=== PATIENT | female | born 1945 | race Two or more races ===

== ENCOUNTER 2019-02-27 20:29 | Inpatient (IN) | payer MEDICAID ==
[~2019-02-27] VITALS: Ht 152.4 cm; Wt 55.8 kg
[2019-02-27 20:45] VITALS: BP 105/60
--- NOTE | 2019-02-27 20:45 | NUR ---
ED Nurse Note: Patient was brought by RA from [facility] due to abnormal labs. AAO x4, Patient's BP is 80/45, other VSS at this time. skin is dry intact warm to touch.
--- NOTE | 2019-02-27 20:50 | Emergency Room Report ---
History of Present Illness General Chief Complaint: Abnormal Labs Source: Patient, Medical Record Present Illness HPI 74-year-old female, coming from senior care, presenting with low H&H. Reportedly her hemoglobin was 6. Patient is also clinical abdominal pain. She does say that she has a history of colon cancer but denies any surgical intervention for this. She says that she has had abdominal pain for quite some time. Denies any black stool. She had a normal bowel movement today that was brown in color. No nausea no vomiting. She is still been able to eat and drink. No fever no chills. No chest pain or shortness of breath Allergies: Coded Allergies: No Known Allergies (Unverified , 02/27/19) Patient History Past Medical History: see triage record Past Surgical History: none Pertinent Family History: none Last Menstrual Period: n/a Reviewed Nursing Documentation: PMH: Agreed; PSxH: Agreed Nursing Documentation-PMH Hx Hypertension: Yes Hx Diabetes: Yes Review of Systems All Other Systems: negative except mentioned in HPI Physical Exam Vital Signs Date Time Temp Pulse Resp B/P (MAP) Pulse Ox O2 Delivery O2 Flow Rate FiO2 02/27/19 20:26 97.9 102 19 100 Room Air Sp02 EP Interpretation: reviewed, normal General Appearance: alert, GCS 15, non-toxic, mild distress Head: normocephalic, atraumatic Eyes: bilateral eye normal inspection, bilateral eye PERRL, bilateral eye EOMI ENT: normal ENT inspection, normal pharynx, normal voice, moist mucus membranes Neck: normal inspection, full range of motion, supple Respiratory: normal inspection, lungs clear, normal breath sounds, no respiratory distress, no retraction, no wheezing, speaking full sentences, chest symmetrical Cardiovascular #1: normal inspection, regular rate, rhythm, no edema, normal capillary refill Cardiovascular #2: 2+ radial (R), 2+ radial (L) Gastrointestinal: other - Generalized abdominal tenderness, no guarding or rebound normal bowel sounds auscultated Musculoskeletal: normal inspection, back normal, normal range of motion, non- tender Neurologic: normal inspection, alert, oriented x3, responsive, motor strength/ tone normal, sensory intact, normal gait, speech normal Psychiatric: normal inspection, judgement/insight normal, memory normal Skin: normal inspection, normal color, no rash, warm/dry, well hydrated, normal turgor Procedures Critical Care Time Critical Care Time Critical care time of 40 minutes, was performed in order to assess and manage the high probability of imminent or life threatening deterioration , with frequent reassessment and excludes all billable procedures. Medical Decision Making Diagnostic Impression: Primary Impression: Anemia Additional Impression: Abdominal pain ER Course 74-year-old female with abdominal pain low H&H hgb 6.8 Differential Diagnosis: GI bleed, Gastritis, gastroenteritis, cholecystitis, appendicitis, diverticulitis, SBO, cardiac, UTI/pyelo Plan: Basic labs, ua, ekg Pepcid, maalox, pain control, IVF CT abdopelvis ER course: Patient given 1 L fluids for hypotension rectal exam: NO stool in vault. no blood Disposition: Patient signed out to Dr Alvarado Pt is still pending CT scan, likely will require admission Please note that this Emergency Department Report was dictated using [employer] analyst technology software, occasionally this can lead to erroneous entry secondary to interpretation by the dictation equipment. EKG Diagnostic Results EP Interpretation: Yes Rate: normal Rhythm: NSR ST Segments: No acute changes ASA given to patient: No Rhythm Strip EP Interpretation: Yes Rate: 92 Rhythm: NSR, no PVCs, no ectopy Chest X-ray CXR: Ordered: Yes 1 view Indication: Pain EP interpretation: Yes Interpretation: slight cardiomegaly otherwise no acute dx Impression: No acute disease Electronically signed by Sam Ulrich MD Laboratory Tests Test 02/27/19 20:50 02/27/19 20:55 02/27/19 21:15 Urine Color Pale yellow Urine Appearance Clear Urine pH 7 (4.5-8.0) Urine Specific [place] 1.005 (1.005-1.035) Urine Protein Negative (NEGATIVE) Urine Glucose (UA) Negative (NEGATIVE) Urine Ketones Negative (NEGATIVE) Urine Blood Negative (NEGATIVE) Urine Nitrite Negative (NEGATIVE) Urine Bilirubin Negative (NEGATIVE) Urine Urobilinogen Normal MG/DL (0.0-1.0) Urine Leukocyte Esterase 1+ (NEGATIVE) H Urine RBC 0-2 /HPF (0 - 2) Urine WBC 2-4 /HPF (0 - 2) Urine Squamous Epithelial Cells Few /LPF (NONE/OCC) Urine Bacteria Few /HPF (NONE) White Blood Count 2.5 K/UL (4.8-10.8) L Red Blood Count 2.61 M/UL (4.20-5.40) L Hemoglobin 7.6 G/DL (12.0-16.0) L Hematocrit 22.2 % (37.0-47.0) L Mean Corpuscular Volume 85 FL (80-99) Mean Corpuscular Hemoglobin 29.3 PG (27.0-31.0) Mean Corpuscular Hemoglobin Concent 34.5 G/DL (32.0-36.0) Red Cell Distribution Width 16.4 % (11.6-14.8) H Platelet Count 102 K/UL (150-450) L Mean Platelet Volume 11.5 FL (6.5-10.1) H Neutrophils (%) (Auto) % (45.0-75.0) Lymphocytes (%) (Auto) % (20.0-45.0) Monocytes (%) (Auto) % (1.0-10.0) Eosinophils (%) (Auto) % (0.0-3.0) Basophils (%) (Auto) % (0.0-2.0) Differential Total Cells Counted 100 Neutrophils % (Manual) 23 % (45-75) L Lymphocytes % (Manual) 71 % (20-45) H Monocytes % (Manual) 3 % (1-10) Eosinophils % (Manual) 2 % (0-3) Basophils % (Manual) 1 % (0-2) Band Neutrophils 0 % (0-8) Platelet Estimate Decreased L Platelet Morphology Normal Hypochromasia 1+ Anisocytosis 1+ Prothrombin Time 10.3 SEC (9.30-11.50) Prothrombin Time INR 1.0 (0.9-1.1) PTT 24 SEC (23-33) Sodium Level 136 MMOL/L (136-145) Potassium Level 4.1 MMOL/L (3.5-5.1) Chloride Level 100 MMOL/L (98-107) Carbon Dioxide Level 23 MMOL/L (21-32) Anion Gap 13 mmol/L (5-15) Blood Urea Nitrogen 21 mg/dL (7-18) H Creatinine 1.0 MG/DL (0.55-1.30) Estimate Glomerular Filtration Rate mL/min (>60) Glucose Level 217 MG/DL (74-106) H Calcium Level 9.5 MG/DL (8.5-10.1) Total Bilirubin 0.2 MG/DL (0.2-1.0) Aspartate Amino Transferase (AST) 11 U/L (15-37) L Alanine Aminotransferase (ALT) 19 U/L (12-78) Alkaline Phosphatase 135 U/L (46-116) H Troponin I 0.023 ng/mL (0.000-0.056) Total Protein 7.8 G/DL (6.4-8.2) Albumin 3.9 G/DL (3.4-5.0) Globulin 3.9 g/dL Albumin/Globulin Ratio 1.0 (1.0-2.7) Lipase 280 U/L (73-393) Lactic Acid Level 4.20 mmol/L (0.4-2.0) H Last Vital Signs Date Time Temp Pulse Resp B/P (MAP) Pulse Ox O2 Delivery O2 Flow Rate FiO2 02/27/19 20:26 97.9 102 19 100 Room Air Disposition: ADMITTED INPATIENT Condition: Serious DesireeoSam M.D. February 27, 2019 20:50
[2019-02-27] MEDS ORDERED: Isovue-300 100ml vial INJ PRN (21:00)
[2019-02-27 21:12] LABS: APPEARANCE,URINE CLEAR; BILIRUBIN, URINE NEGATIVE (NEGATIVE); COLOR,URINE PALE YELLOW; GLUCOSE, URINE (UA) NEGATIVE (NEGATIVE); KETONES,URINE NEGATIVE (NEGATIVE); LEUKOCYTE ESTERASE ,URINE 1+ (NEGATIVE); NITRITE,URINE NEGATIVE (NEGATIVE); PH,URINE 7 (4.5-8.0); PROTEIN,URINE NEGATIVE (NEGATIVE); UROBILINOGEN,URINE NORMAL MG/DL (0.0-1.0)
[2019-02-27 21:12] LABS: HEMATOCRIT 22.2 % (37.0-47.0); HEMOGLOBIN 7.6 G/DL (12.0-16.0); MEAN CORPUSCULAR VOLUME 85 FL (80-99); PLATELET COUNT 102 K/UL (150-450); RED BLOOD COUNT 2.61 M/UL (4.20-5.40); RED CELL DISTRIBUTION WIDTH 16.4 % (11.6-14.8); WHITE BLOOD COUNT 2.5 K/UL (4.8-10.8)
[2019-02-27 21:29] LABS: ANION GAP 13 mmol/L (5-15); BLOOD UREA NITROGEN 21 mg/dL (7-18); CALCIUM 9.5 MG/DL (8.5-10.1); CARBON DIOXIDE 23 MMOL/L (21-32); CHLORIDE 100 MMOL/L (98-107); POTASSIUM 4.1 MMOL/L (3.5-5.1); SODIUM 136 MMOL/L (136-145)
[2019-02-27 21:33] LABS: ALANINE AMINOTRANSFERASE 19 U/L (12-78); ALBUMIN 3.9 G/DL (3.4-5.0); ALKALINE PHOSPHATASE 135 U/L (46-116); ASPARTATE AMINO TRANSFERASE 11 U/L (15-37); BILIRUBIN,TOTAL 0.2 MG/DL (0.2-1.0)
[2019-02-27] MEDS ORDERED: OMEPRAZOLE20 M3 ORAL (22:10)
[2019-02-27] MEDS ORDERED: GLIMEPIRIDE4 MG ORAL (22:10)
[2019-02-27] MEDS ORDERED: LANTUS SOL100 UNIT/1 SUBQ (22:10)
[2019-02-27] MEDS ORDERED: SPIRONOLACTONE100 MG ORAL (22:10)
[2019-02-27] MEDS ORDERED: LISINOPRIL5 MG ORAL (22:10)
[2019-02-27] MEDS ORDERED: REVLIMID5 MG PO (22:10)
[2019-02-27] MEDS ORDERED: MELATONIN3 MG ORAL (22:10)
[2019-02-27] MEDS ORDERED: FUROSEMIDE40 MG ORAL (22:10)
[2019-02-27] MEDS ORDERED: ACTOS45 MG ORAL (22:10)
[2019-02-27] MEDS ORDERED: METOPROLOL TART25 MG ORAL (22:10)
[2019-02-27] MEDS ORDERED: METFORMIN HCL1000 M1 ORAL (22:10)
[2019-02-27] MEDS ORDERED: SIMVASTATIN20 MG ORAL (22:10)
[2019-02-27] MEDS ORDERED: ACETAMINOPHEN325 M1 ORAL (22:10)
[2019-02-27] MEDS ORDERED: Ciprofloxacin 500mg tab ORAL ONE (22:45)
--- NOTE | 2019-02-27 22:54 | NUR ---
ED Nurse Note: Patient refused take Ciprofloaxacin. States that she can not dring liquids.
--- NOTE | 2019-02-27 23:35 | NUR ---
ED Nurse Note: Blood transfusion start at 2335, VSS at this time, no acute disstress or transfusion reaction noticed.
--- NOTE | 2019-02-27 23:40 | NUR ---
ED Nurse Note: Per ER MD Gregg 3.375 was canceled.
--- NOTE | 2019-02-27 23:50 | NUR ---
ED Nurse Note: 15 min pass since blod transfusion started, VSS at this time, no blood transfusion reaction noticed.
[2019-02-28] VITALS: BP 122/70
[2019-02-28] MEDS ORDERED: Hydromorphone 0.5mg/0.5ml inj IVP PRN (00:15)
[2019-02-28] MEDS ORDERED: Piperacillin/Tazobactam 3.375 GM in NS 110 ML IVPB SCH ×2 (00:30→06:00)
--- NOTE | 2019-02-28 00:50 | NUR ---
ED Nurse Note: Patient was admited to Tele due to abnormal labs AAO x4, VSS at this time,. skin is dry, warm to touch. Patient was transfered by ACLS protocol, all belongings were given to the patient.
--- NOTE | 2019-02-28 01:00 | NUR ---
NURSE NOTES: Received report from Nataly. EMA. regarding patients transfer to TELE floor from ED. belongings checked and accounted for. head to toe assessment done with no noted skin issues. No complaint of acute pain at this time. No reaction observed with blood transfusion. Safety precaution in place; siderails X2 up, call light within reach, bed in lowest position, brakes and alarm on at all times. Needs and wants anticipated and attended. Will continue plan of care and monitor for any changes noted. Addendum: 02/28/19 at 0752 by KIEL VASQUEZ RN Charted with wrong Nurse access
--- NOTE | 2019-02-28 01:00 | NUR ---
NURSE NOTES: Received report from Nataly. RN. regarding patients transfer to TELE floor from ED. belongings checked and accounted for. head to toe assessment done with no noted skin issues. No complaint of acute pain at this time. No reaction observed with blood transfusion. Safety precaution in place; siderails X2 up, call light within reach, bed in lowest position, brakes and alarm on at all times. Needs and wants anticipated and attended. Will continue plan of care and monitor for any changes noted.
--- NOTE | 2019-02-28 01:00 | NUR ---
NURSE NOTES: Spoke with David Villaseñor MD. regarding admit orders. New orders received and carried out. Will continue 2/2 bag of PRBCs per MD. Will continue plan of care.
[2019-02-28] MEDS ORDERED: D5 1/2NS w/KCl 20mEq 1,000 ML IV SCH (01:04)
[2019-02-28] MEDS: Piperacillin/Tazobactam 3.375 GM in NS 110 ML IVPB SCH ×3 (03:35→21:21)
[2019-02-28 04:00] VITALS: BP 132/82
[2019-02-28] MEDS ORDERED: Vancomycin 1gm in D5W 275ml IVPB SCH (06:00)
[2019-02-28] MEDS: NovoLOG Insulin Flexpen SUBQ SCH ×4 (06:30→21:00)
--- NOTE | 2019-02-28 07:55 | NUR ---
HAND-OFF: Report given to Maverick Adamson RN. PAtient in stable condition. Will continue plan of care.
[2019-02-28 08:00] VITALS: BP 130/82
[2019-02-28] MEDS: Heparin 5000 units/ml inj SUBQ SCH ×2 (09:00→21:00)
[2019-02-28 09:13] LABS: HEMATOCRIT 32.3 % (37.0-47.0); HEMOGLOBIN 10.9 G/DL (12.0-16.0); MEAN CORPUSCULAR VOLUME 87 FL (80-99); PLATELET COUNT 81 K/UL (150-450); RED CELL DISTRIBUTION WIDTH 15.2 % (11.6-14.8)
[2019-02-28 09:39] LABS: ALANINE AMINOTRANSFERASE 21 U/L (12-78); ALBUMIN 3.3 G/DL (3.4-5.0); ALBUMIN/GLOBULIN RATIO 0.9 (1.0-2.7); ALKALINE PHOSPHATASE 117 U/L (46-116); ANION GAP 12 mmol/L (5-15); ASPARTATE AMINO TRANSFERASE 15 U/L (15-37); BILIRUBIN,TOTAL 0.6 MG/DL (0.2-1.0); BLOOD UREA NITROGEN 15 mg/dL (7-18); CALCIUM 9.1 MG/DL (8.5-10.1); CARBON DIOXIDE 23 MMOL/L (21-32); CHLORIDE 107 MMOL/L (98-107); CREATININE 0.8 MG/DL (0.55-1.30); POTASSIUM 4.6 MMOL/L (3.5-5.1); SODIUM 142 MMOL/L (136-145)
[2019-02-28 10:02] LABS: WHITE BLOOD COUNT 1.8 K/UL (4.8-10.8)
--- NOTE | 2019-02-28 10:51 | NUR ---
*-* INSURANCE *-* ALL CLINICALS HAVE BEEN FAXED TO: IPA: JOSEP HARRIS P: [phone] F: [phone] Addendum: 02/28/19 at 1542 by ANDERSON VILLALOBOS CM KATHLEEN# [id number]
[2019-02-28 12:00] VITALS: BP 138/88
[2019-02-28] MEDS: Vancomycin 1gm in D5W 275ml IVPB SCH (12:13)
--- NOTE | 2019-02-28 13:53 | Diagnostic Imaging Report ---
Indication: Abdominal pain Technique: Continuous helical transaxial imaging of the abdomen and pelvis was obtained from the lung bases to the pubic symphysis during intravenous contrast administration. Coronal 2-D reformats were also obtained. Study obtained in a Siemens sensation [address] Automatic Exposure Control was utilized. Total Dose length Product (DLP): 546.[address] Dose Index Volume (CTDIvol): 11.15 mGy Comparison: None Findings: There is calcification of the mitral valve. Small hiatal hernia noted. The lung bases are clear. There is pneumobilia present. The biliary ducts do not appear dilated. Aorta is moderately calcified. The gallbladder is absent. The spleen is normal in size. Attenuation of the liver is normal and uniform. There is an umbilical hernia containing fat. Few diverticula noted in the sigmoid colon. Uterus is unremarkable. The bladder is unremarkable. There is a left inguinal hernia containing fat. Subcutaneous reticular densities demonstrated in the sacral decubitus region. No obvious soft tissue air identified. There is no abscess identified. Correlate clinically for sacral decubitus ulcers. There is narrowing of intervertebral discs and accompanying endplate osteophyte formation. Hypertrophied facet joints also demonstrated.. Small hypodensities noted in the kidneys too small to characterize. There is no hydronephrosis. There is no adrenal mass, free fluid or free air. Bowel gas pattern is nonobstructive. Normal appendix noted. IMPRESSION: Diverticulosis of the colon. No definite diverticulitis. Normal appendix. Atherosclerotic vascular disease Small left inguinal hernia containing fat Pneumobilia. Correlate clinically. Umbilical hernia containing fat Degenerative changes of the lumbar spine. Other findings as above The CT scanner at [facility] is accredited by the [employer] and the scans are performed using dose optimization techniques as appropriate to a performed exam including Automatic Exposure control.
--- NOTE | 2019-02-28 13:54 | Diagnostic Imaging Report ---
Indication: Dyspnea Comparison: None A single view chest radiograph was obtained. Findings: Heart is borderline enlarged. Aorta is mildly calcified. Lungs are clear. Bones are osteopenic. IMPRESSION: No acute disease
--- NOTE | 2019-02-28 15:09 | NUR ---
CASE MANAGEMENT:REVIEW 74 YR OLD FEMALE BIBA FROM [facility] CC: ABNORMAL LABS AND ABDOMINAL PAIN SI: ANEMIA 97.8 102 19 80/45 100% ON RA H/H-7.6/22.2 IS: 1L NS BOLUS CT ABD/PELVIS CHEST XRAY TRANSFUSE 2 UNITS PRBC'S : TO TELEMETRY INTERQUAL CRITERIA MET
[2019-02-28 16:00] VITALS: BP 136/81
--- NOTE | 2019-02-28 17:37 | Cardiology Report ---
APPROVED REPORT EKG Measurement Heart [id number] Normal sinus rhythm Normal ECG
[2019-02-28 19:05] LABS: FERRITIN 1467 NG/ML (8-388)
--- NOTE | 2019-02-28 19:15 | NUR ---
NURSE NOTES: RECEIVED PATIENT FROM KALIE BOO. PT HAS NO SIGNS OF ACUTE DISTRESS. BED AT ITS LOWEST POSITION, CALL LIGHT IN REACH AND x3 BED RAILS UP. WILL CONTINUE TO MONITOR.
[2019-02-28 19:19] LABS: % IRON SATURATION 93 % (15-50); IRON 212 ug/dL (50-175); TOTAL IRON BINDING CAPACITY 229 ug/dL (250-450)
--- NOTE | 2019-02-28 19:21 | Consultation ---
Consult Note Consult Note [id number] Chi Villaseñor MD February 28, 2019 19:21
[2019-02-28 20:00] VITALS: BP 114/75
[2019-02-28] MEDS: Levemir Flexpen SUBQ SCH (21:00)
[2019-02-28] MEDS: Atorvastatin 20mg tab ORAL SCH (21:20)
--- NOTE | 2019-02-28 22:04 | Infectious Diseases Prog Note ---
Assessment/Plan Problems: (1) Diverticulitis Assessment & Plan: in the distal descending colon , confirmed on CT ABD, will start cefepime and metronidazole empirically , send blood culture to rule out bacteremia (2) Neutropenia Assessment & Plan: suspect due to bone marrow suppression from chemo and less likely infection related will start cefepime for pseudomonas coverage, and continue vancomycin empirically. send blood culture to rule out bacteremia . may benefit from filgrastim injection to improve her white cell counts recommend hematology/ oncology eval (3) Pancytopenia Assessment & Plan: suspect bone marrow suppression related from chemo , recommend hematology eval, blood transfusion as needed , and may be filgrastim injection . will screen for hepatitis (4) Abdominal pain Assessment & Plan: suspect due to the above , continue pain management , hydration and antibiotics (5) Anemia Assessment & Plan: suspect bone marrow suppression with pancytopenia , monitor H/H, transfuse as needed Subjective Allergies: Coded Allergies: No Known Allergies (Unverified , 02/27/19) Objective Vital Signs Last 24 Hour Vital Signs Date Time Temp Pulse Resp B/P (MAP) Pulse Ox O2 Delivery O2 Flow Rate FiO2 02/28/19 16:00 98.4 101 19 136/81 (99) 97 02/28/19 16:00 92 02/28/19 12:00 99 02/28/19 12:00 98.1 99 20 138/88 (105) 97 02/28/19 09:00 Room Air 02/28/19 08:00 96 02/28/19 08:00 98.0 96 19 130/82 (98) 98 02/28/19 04:00 97.7 93 18 132/82 (99) 97 02/28/19 04:00 94 02/28/19 03:38 Room Air 02/28/19 01:00 97 02/28/19 00:45 97.9 111 20 100/56 100 Room Air 02/28/19 00:13 97.8 100 22 02/28/19 00:00 98.5 95 18 122/70 (87) 98 02/27/19 23:50 98.3 111 20 Height (Feet): 5 Height (Inches): 0.00 Weight (Pounds): 123 Microbiology Date/Time Source Procedure Growth Status 02/28/19 00:30 Rectum Received Laboratory Tests Test 5/14/19 22:10 02/28/19 08:40 02/28/19 19:00 Lactic Acid Level 3.70 mmol/L (0.66-2.22) H White Blood Count 1.8 K/UL (4.8-10.8) *L Red Blood Count 3.70 M/UL (4.20-5.40) L Hemoglobin 10.9 G/DL (12.0-16.0) #L Hematocrit 32.3 % (37.0-47.0) #L Mean Corpuscular Volume 87 FL (80-99) Mean Corpuscular Hemoglobin 29.3 PG (27.0-31.0) Mean Corpuscular Hemoglobin Concent 33.6 G/DL (32.0-36.0) Red Cell Distribution Width 15.2 % (11.6-14.8) H Platelet Count 81 K/UL (150-450) L Mean Platelet Volume 15.5 FL (6.5-10.1) H Neutrophils (%) (Auto) % (45.0-75.0) Lymphocytes (%) (Auto) % (20.0-45.0) Monocytes (%) (Auto) % (1.0-10.0) Eosinophils (%) (Auto) % (0.0-3.0) Basophils (%) (Auto) % (0.0-2.0) Differential Total Cells Counted 100 Neutrophils % (Manual) 44 % (45-75) L Lymphocytes % (Manual) 47 % (20-45) H Monocytes % (Manual) 3 % (1-10) Eosinophils % (Manual) 3 % (0-3) Basophils % (Manual) 2 % (0-2) Band Neutrophils 1 % (0-8) Platelet Estimate Decreased L Platelet Morphology Normal Hypochromasia 1+ Anisocytosis 1+ Spherocytes 1+ Sodium Level 142 MMOL/L (136-145) Potassium Level 4.6 MMOL/L (3.5-5.1) Chloride Level 107 MMOL/L (98-107) Carbon Dioxide Level 23 MMOL/L (21-32) Anion Gap 12 mmol/L (5-15) Blood Urea Nitrogen 15 mg/dL (7-18) Creatinine 0.8 MG/DL (0.55-1.30) Estimat Glomerular Filtration Rate mL/min (>60) Glucose Level 227 MG/DL (74-106) H Hemoglobin A1c 6.5 % (4.3-6.0) H Calcium Level 9.1 MG/DL (8.5-10.1) Iron Level 212 ug/dL (50-175) H Total Iron Binding Capacity 229 ug/dL (250-450) L Percent Iron Saturation 93 % (15-50) H Unsaturated Iron Binding 17 ug/dL (112-346) L Ferritin 1467 NG/ML (8-388) H Total Bilirubin 0.6 MG/DL (0.2-1.0) Aspartate Amino Transf (AST/SGOT) 15 U/L (15-37) Alanine Aminotransferase (ALT/SGPT) 21 U/L (12-78) Alkaline Phosphatase 117 U/L (46-116) H Total Protein 6.8 G/DL (6.4-8.2) Albumin 3.3 G/DL (3.4-5.0) L Globulin 3.5 g/dL Albumin/Globulin Ratio 0.9 (1.0-2.7) L Vitamin B12 Level 450 PG/ML (193-986) Folate 15.7 NG/ML (8.6-58.9) Reticulocyte Count 0.4 % (0.5-2.0) L HIV (1&2) Antibody Rapid Negative (NEGATIVE) Current Medications Medications (Trade) Dose Ordered Sig/Alex Route PRN Reason Start Time Stop Time Status Last Admin Dose Admin Acetaminophen (Tylenol) 650 mg Q4H PRN ORAL Mild Pain (Pain Scale 1-3) 02/28/19 00:15 03/30/19 00:14 02/28/19 20:36 Atorvastatin Calcium (Lipitor) 20 mg BEDTIME ORAL 02/28/19 21:00 03/30/19 20:59 02/28/19 21:20 Cefepime HCl 2 gm/ Dextrose 55 ml @ 110 mls/hr Q8H IVPB 02/28/19 22:00 03/07/19 21:59 UNV Dextrose (Dextrose 50%) 25 ml Q30M PRN IV Hypoglycemia 02/28/19 00:15 03/30/19 00:14 Dextrose (Dextrose 50%) 50 ml Q30M PRN IV Hypoglycemia 02/28/19 00:15 03/30/19 00:14 Dextrose/ Electrolytes 1,000 ml @ 50 mls/hr Q20H IV 02/28/19 00:45 03/30/19 00:44 02/28/19 02:25 Diphenhydramine HCl (Benadryl) 25 mg Q6H PRN ORAL Itching/Pruritis 02/28/19 00:15 03/30/19 00:14 Heparin Sodium (Porcine) (Heparin 5000 units/ml) 5,000 units EVERY 12 HOURS SUBQ 02/28/19 09:00 03/30/19 08:59 Hydromorphone HCl (Dilaudid) 0.5 mg Q6H PRN IVP For Pain 02/28/19 00:15 03/07/19 00:14 02/28/19 11:26 Insulin Aspart (NovoLOG) BEFORE MEALS AND HS SUBQ 02/28/19 06:30 03/30/19 06:29 Insulin Detemir (Levemir) 20 units BEDTIME SUBQ 02/28/19 21:00 03/30/19 20:59 Iopamidol (Isovue-300 100ml) 100 ml NOW PRN INJ Radiology Procedure 02/27/19 21:00 Ondansetron HCl (Zofran) 4 mg Q6H PRN IVP Nausea & Vomiting 02/28/19 00:15 03/30/19 00:14 02/28/19 11:40 Pantoprazole (Protonix) 40 mg DAILY ORAL 02/28/19 09:00 03/30/19 08:59 02/28/19 09:31 Pioglitazone HCl (Actos) 45 mg ACBREAKFAST ORAL 02/28/19 06:30 03/30/19 06:29 02/28/19 06:44 Piperacillin Sod/ Tazobactam Sod 3.375 gm/Sodium Chloride 110 ml @ 27.5 mls/hr Q8H IVPB 02/28/19 03:00 03/07/19 00:29 02/28/19 21:21 Vancomycin HCl (Vanco rx to dose) 1 ea DAILY PRN MISC Per rx protocol 02/28/19 00:30 03/30/19 00:29 Vancomycin HCl 1 gm/Dextrose 275 ml @ 183.708 mls/hr Q24H IVPB 02/28/19 08:00 03/05/19 07:59 02/28/19 12:13 Jessica Arana M.D. February 28, 2019 22:04
[2019-02-28] MEDS ORDERED: Cefepime HCl 2 GM in D5W 55 ML IVPB SCH (23:00)
--- NOTE | 2019-02-28 23:00 | NUR ---
HAND-OFF: Report given to TERRIE BOO. Addendum: 02/28/19 at 5114 by Willie Espinosa RN CHANGED TIME REPORTED
--- NOTE | 2019-02-28 23:19 | NUR ---
NURSE NOTES: received endorsement from Willie BOO, pt in bed sleeping, no acute distress noted, no s/s of pain noted. bed locked and lowest position. bed's side rail up x2, call light within reach. will make hourly rounds to ensure pt's safety.
[2019-03-01] VITALS: BP 119/64
--- NOTE | 2019-03-01 | NUR ---
NURSE NOTES: pt in bed resting, no change in condition. will continue to monitor to ensure pt's safety.
--- NOTE | 2019-03-01 00:15 | History and Physical Report ---
DATE OF ADMISSION: 02/27/2019 REASON FOR ADMISSION: Anemia and abdominal pain. HISTORY OF PRESENT ILLNESS: This is a very pleasant 74-year-old female, does not speak Telugu, resident of a assisted, patient of Dr. Maximilian Kaufman that I am covering for, apparently was found to have abnormal laboratories with a hemoglobin in the range of 6.8 grams/deciliter, subsequently was brought to the emergency room of [facility]. However, she has been complaining of some lower abdominal pain. She underwent a CT scan of the abdomen that shows evidence of descending colon, diverticulosis, and diverticulitis was not completely excluded. On the blood work, she had evidence of some leukopenia and also a lactic acid being elevated at 4.2. She was given some intravenous Levaquin and Flagyl as well as p.o. Cipro and was decided to be admitted for further evaluation. By the time I am seeing her, she is having some nausea and vomiting, but no hematemesis, melena, or hematochezia. Apparently, she has history of myelodysplastic syndrome and it was decided to be admitted for further evaluation. PAST MEDICAL HISTORY: Significant for type 2 diabetes mellitus, insulin requiring, congestive heart failure, gastritis, gastroesophageal reflux disease, and myelodysplastic syndrome. PAST SURGICAL HISTORY: Unknown. MEDICATIONS: Include is furosemide 40 mg p.o. daily, Amaryl 4 mg p.o. daily, Lantus insulin 20 units subcutaneous daily, Revlimid 5 mg p.o. daily , lisinopril 2.5 mg p.o. daily, melatonin 3 mg p.o. daily, metformin 1000 mg p.o. b.i.d, metoprolol 25 mg p.o. b.i.d., omeprazole 20 mg p.o. b.i.d., Actos 45 mg p.o. daily, simvastatin 20 mg p.o. daily, and spironolactone 100 mg p.o. daily. SOCIAL HISTORY: She is a resident of a assisted. No smoking. No drinking. SYSTEM REVIEW: GENERAL: She is feeling somewhat tired. However, she is feeling better than when she came in yesterday. CARDIOVASCULAR: Denies any chest pain, dyspnea with exertion, or orthopnea. GASTROINTESTINAL: She has had some nausea and vomiting. No diarrhea, melena, or hematochezia. SKIN: Denies any rash or photosensitivity. MUSCULOSKELETAL: Denies any arthralgia or myalgia. HEMATOLOGIC: She has myelodysplastic syndrome. The remainder of the review of the systems has been essentially negative. PHYSICAL EXAMINATION: GENERAL: She does not seem to be in much acute distress. VITAL SIGNS: Blood pressure 136/81, pulse of 101, respirations 19, and temperature 98.4. HEENT: Head is atraumatic. Eyes, pupils are reactive to light. No evidence of papilledema. Ears, canals are clear. Tympanic membranes are intact. Nose, nares are patent without any nasal discharge. Throat without inflammation or exudate. NECK: Supple. Jugular venous distention is within normal limits. No cervical adenopathies. No thyromegaly. HEART: Regular rhythm. No gallop. LUNGS: Clear to auscultation. ABDOMEN: Supple. Bowel sounds positive. No hepatosplenomegaly. She has a little bit of left lower quadrant tenderness. EXTREMITIES: Lower extremity shows no cyanosis or clubbing. No pedal edema. NEUROLOGICAL: Cranial nerves are intact. Deep tendon reflexes are symmetrically decreased in both lower extremities. LABORATORY DATA: Showing WBC of 2.5, hemoglobin 7.6, hematocrit 22.2, and platelets of 102,000. Sodium 142, potassium 4.6, chloride 107, carbon dioxide 23, BUN 15, creatinine 0.8, and glucose 227. Lactate was 4.2, came down to 3.7. Alkaline phosphatase is 117. Albumin 3.3. IMPRESSION: 1. Diverticulosis of the colon with questionable diverticulitis. 2. Myelodysplastic syndrome. 3. Type 2 diabetes mellitus. 4. History of gastritis. PLAN: She has been admitted. We will start her on vancomycin and Zosyn. Infectious Disease consult is in order. A 2 units of PRBCs has been given. Her hemoglobin came up to about 10.9 after blood transfusion. Chi Villaseñor M.D. DR: GUY JOB#: [id number] CC:
[2019-03-01 04:00] VITALS: BP 111/66
--- NOTE | 2019-03-01 04:32 | NUR ---
NURSE NOTES: pt in bed, sleeping no change in condition, no c/o pain or discomfort. bed locked and lowest position, Bed's side rails up x2. call light within reach. will continue to make rounds hourly to ensure pt's safety.
[2019-03-01] MEDS: NovoLOG Insulin Flexpen SUBQ SCH ×4 (05:56→20:16)
[2019-03-01 06:30] LABS: ALANINE AMINOTRANSFERASE 12 U/L (12-78); ALBUMIN 2.7 G/DL (3.4-5.0); ALBUMIN/GLOBULIN RATIO 0.9 (1.0-2.7); ALKALINE PHOSPHATASE 93 U/L (46-116); ANION GAP 10 mmol/L (5-15); ASPARTATE AMINO TRANSFERASE 10 U/L (15-37); BILIRUBIN,TOTAL 0.6 MG/DL (0.2-1.0); BLOOD UREA NITROGEN 11 mg/dL (7-18); CALCIUM 8.2 MG/DL (8.5-10.1); CARBON DIOXIDE 24 MMOL/L (21-32); CHLORIDE 107 MMOL/L (98-107); CREATININE 0.8 MG/DL (0.55-1.30); SODIUM 141 MMOL/L (136-145)
[2019-03-01 06:42] LABS: HEMATOCRIT 28.1 % (37.0-47.0); HEMOGLOBIN 9.5 G/DL (12.0-16.0); MEAN CORPUSCULAR VOLUME 85 FL (80-99); PLATELET COUNT 64 K/UL (150-450); RED BLOOD COUNT 3.29 M/UL (4.20-5.40); RED CELL DISTRIBUTION WIDTH 14.9 % (11.6-14.8)
--- NOTE | 2019-03-01 06:47 | NUR ---
NURSE NOTES: Artem Brown from lab reported pt's WBC 1.0, will endorse to incoming nurse.
--- NOTE | 2019-03-01 06:56 | NUR ---
NURSE NOTES: pt remains in stable condition no change in condition, no acute distress,no c/o pain. pt refused insulin administration education provided pt still refused insulin. all need met during my shift, bed locked and lowest position, bedside rail up x2, call light within reach, will endorse care to incoming nurse.
--- NOTE | 2019-03-01 07:06 | NUR ---
NURSE NOTES: Dr Villaseñor notified about critical result WBC 1.0, states"ok thanks" no new order Received.
--- NOTE | 2019-03-01 07:20 | NUR ---
NURSE NOTES: Received report from EMA Goldberg. Pt is laying in bed sleeping. Neutropenic precautions are in place. Bed is in lowest position, side rails up X2, and call light is within reach.
--- NOTE | 2019-03-01 07:26 | NUR ---
HAND-OFF: Report given to Kenia Mcmillan.
[2019-03-01 08:09] VITALS: BP 107/63
[2019-03-01] MEDS: Vancomycin 1gm in D5W 275ml IVPB SCH (08:24)
[2019-03-01] MEDS: Heparin 5000 units/ml inj SUBQ SCH ×2 (08:26→20:15)
--- NOTE | 2019-03-01 11:36 | NUR ---
NURSE NOTES: Pt is refusing insulin. She states that she gets a bad reaction and she will not take it. Explained the importance of keeping her sugar within an adequate range. Pt verbalized understanding but will continue to refuse insulin
[2019-03-01 12:00] VITALS: BP 126/47
--- NOTE | 2019-03-01 12:05 | NUR ---
CASE MANAGEMENT:REVIEW 03/01/19 SI: DIVERTICULOSIS W/QUESTIONABLE DIVERTICULITIS MYELODYSPLASTIC SYNDROME 98.3 70 20 107/63 97% ON RA WBC-1.0 PLT-64 IS: IV CEFEPIME QHS IV FLAGYL Q8HRS IV VANCOMYCIN Q24 IVF@50/HR : TELEMETRY STATUS DCP: FROM [facility]
--- NOTE | 2019-03-01 13:26 | NUR ---
*-* INSURANCE *-* ALL CLINICALS AND REVIEWS HAVE BEEN FAXED TO: IPA: [facility] P: [phone] F: [phone] TRK# [id number]
--- NOTE | 2019-03-01 15:06 | Infectious Diseases Prog Note ---
Assessment/Plan Problems: (1) Diverticulitis Assessment & Plan: in the distal descending colon , confirmed on CT ABD, continue cefepime and metronidazole empirically , monitor blood culture to rule out bacteremia (2) Neutropenia Assessment & Plan: suspect due to chemo therapy and less likely due to infection , due to bone marrow suppression continue cefepime for pseudomonas coverage, and vancomycin empirically. await blood culture to rule out bacteremia. will need filgrastim injection to improve her white cell counts recommend oncology eval for myelodysplasia syndrome (3) Pancytopenia Assessment & Plan: suspect bone marrow supression from chemo (Revlimid ), recommend oncology eval, blood transfusion as needed , and may be filgrastim injection . will screen for hepatitis (4) Abdominal pain Assessment & Plan: suspect due to the above , continue pain management , hydration and antibiotics (5) Anemia Assessment & Plan: suspect bone marrow suppression with pancytopenia , monitor H/H, transfuse as needed Subjective Constitutional: Reports: fatigue, anorexia HEENT: Reports: no symptoms Respiratory: Reports: no symptoms Breasts: Reports: no symptoms Cardiovascular: Reports: no symptoms Gastrointestinal/Abdominal: Reports: nausea Genitourinary: Reports: no symptoms Neurologic: Reports: weakness Psychiatric: Reports: no symptoms Skin: Reports: no symptoms Endocrine: Reports: no symptoms Hematologic: Reports: no symptoms Musculoskeletal: Reports: no symptoms Allergies: Coded Allergies: No Known Allergies (Unverified , 02/27/19) Objective Vital Signs Last 24 Hour Vital Signs Date Time Temp Pulse Resp B/P (MAP) Pulse Ox O2 Delivery O2 Flow Rate FiO2 03/01/19 12:00 97.7 79 19 126/47 (73) 97 03/01/19 12:00 78 03/01/19 09:30 Room Air 03/01/19 08:09 98.3 70 20 107/63 (78) 97 03/01/19 08:00 71 03/01/19 04:00 97.5 84 18 111/66 (81) 98 03/01/19 04:00 88 03/01/19 00:00 98.0 88 18 119/64 (82) 97 03/01/19 00:00 106 02/28/19 21:00 Room Air 02/28/19 20:00 97.3 95 18 114/75 (88) 97 02/28/19 20:00 90 02/28/19 16:00 98.4 101 19 136/81 (99) 97 02/28/19 16:00 92 Height (Feet): 5 Height (Inches): 0.00 Weight (Pounds): 123 General Appearance: WD/WN, no acute distress HEENT: normocephalic, atraumatic, anicteric, mucous membranes moist, PERRL Respiratory/Chest: chest wall non-tender, lungs clear, no respiratory distress , no accessory muscle use, decreased breath sounds Cardiovascular: normal peripheral pulses, normal rate, regular rhythm, no gallop/murmur, no JVD Abdomen: normal bowel sounds, soft, non tender, no organomegaly, non distended , no mass, no scars Extremities: no cyanosis, no clubbing Skin: no rash, no lesions, no ulcers Neurologic/Psychiatric: alert, responsive Lymphatic: no neck adenopathy, no groin adenopathy Musculoskeletal: normal muscle bulk, no effusion Microbiology Date/Time Source Procedure Growth Status 02/28/19 00:30 Rectum Received Laboratory Tests Test 02/28/19 19:00 02/28/19 23:30 03/01/19 05:25 Reticulocyte Count 0.4 % (0.5-2.0) L HIV (1&2) Antibody Rapid Negative (NEGATIVE) Hepatitis B Surface Antigen Pending Hepatitis C Antibody Pending White Blood Count 1.0 K/UL (4.8-10.8) *L Red Blood Count 3.29 M/UL (4.20-5.40) L Hemoglobin 9.5 G/DL (12.0-16.0) L Hematocrit 28.1 % (37.0-47.0) L Mean Corpuscular Volume 85 FL (80-99) Mean Corpuscular Hemoglobin 29.0 PG (27.0-31.0) Mean Corpuscular Hemoglobin Concent 34.0 G/DL (32.0-36.0) Red Cell Distribution Width 14.9 % (11.6-14.8) H Platelet Count 64 K/UL (150-450) L Mean Platelet Volume FL (6.5-10.1) Neutrophils (%) (Auto) % (45.0-75.0) Lymphocytes (%) (Auto) % (20.0-45.0) Monocytes (%) (Auto) % (1.0-10.0) Eosinophils (%) (Auto) % (0.0-3.0) Basophils (%) (Auto) % (0.0-2.0) Differential Total Cells Counted 100 Neutrophils % (Manual) 44 % (45-75) L Lymphocytes % (Manual) 46 % (20-45) H Monocytes % (Manual) 5 % (1-10) Eosinophils % (Manual) 5 % (0-3) H Basophils % (Manual) 0 % (0-2) Band Neutrophils 0 % (0-8) Platelet Estimate Decreased L Platelet Morphology Normal Hypochromasia 2+ Anisocytosis 1+ Spherocytes 2+ Sodium Level 141 MMOL/L (136-145) Potassium Level 4.0 MMOL/L (3.5-5.1) Chloride Level 107 MMOL/L (98-107) Carbon Dioxide Level 24 MMOL/L (21-32) Anion Gap 10 mmol/L (5-15) Blood Urea Nitrogen 11 mg/dL (7-18) Creatinine 0.8 MG/DL (0.55-1.30) Estimat Glomerular Filtration Rate mL/min (>60) Glucose Level 174 MG/DL (74-106) H Lactic Acid Level 1.30 mmol/L (0.4-2.0) Calcium Level 8.2 MG/DL (8.5-10.1) L Total Bilirubin 0.6 MG/DL (0.2-1.0) Gamma Glutamyl Transpeptidase 16 U/L (5-85) Aspartate Amino Transf (AST/SGOT) 10 U/L (15-37) L Alanine Aminotransferase (ALT/SGPT) 12 U/L (12-78) Alkaline Phosphatase 93 U/L (46-116) Total Protein 5.7 G/DL (6.4-8.2) L Albumin 2.7 G/DL (3.4-5.0) L Globulin 3.0 g/dL Albumin/Globulin Ratio 0.9 (1.0-2.7) L Current Medications Medications (Trade) Dose Ordered Sig/Alex Route PRN Reason Start Time Stop Time Status Last Admin Dose Admin Acetaminophen (Tylenol) 650 mg Q4H PRN ORAL Mild Pain (Pain Scale 1-3) 02/28/19 00:15 03/30/19 00:14 03/01/19 11:34 Atorvastatin Calcium (Lipitor) 20 mg BEDTIME ORAL 02/28/19 21:00 03/30/19 20:59 02/28/19 21:20 Cefepime HCl 2 gm/ Dextrose 55 ml @ 110 mls/hr QHS IVPB 03/01/19 21:00 03/08/19 20:59 Dextrose (Dextrose 50%) 25 ml Q30M PRN IV Hypoglycemia 02/28/19 00:15 03/30/19 00:14 Dextrose (Dextrose 50%) 50 ml Q30M PRN IV Hypoglycemia 02/28/19 00:15 03/30/19 00:14 Dextrose/ Electrolytes 1,000 ml @ 50 mls/hr Q20H IV 02/28/19 00:45 03/30/19 00:44 02/28/19 22:25 Diphenhydramine HCl (Benadryl) 25 mg Q6H PRN ORAL Itching/Pruritis 02/28/19 00:15 03/30/19 00:14 Heparin Sodium (Porcine) (Heparin 5000 units/ml) 5,000 units EVERY 12 HOURS SUBQ 02/28/19 09:00 03/30/19 08:59 Hydromorphone HCl (Dilaudid) 0.5 mg Q6H PRN IVP For Pain 02/28/19 00:15 03/07/19 00:14 02/28/19 11:26 Insulin Aspart (NovoLOG) BEFORE MEALS AND HS SUBQ 02/28/19 06:30 03/30/19 06:29 Insulin Detemir (Levemir) 20 units BEDTIME SUBQ 02/28/19 21:00 03/30/19 20:59 Iopamidol (Isovue-300 100ml) 100 ml NOW PRN INJ Radiology Procedure 02/27/19 21:00 Metronidazole 100 ml @ 100 mls/hr Q8HR IVPB 02/28/19 22:00 03/07/19 21:59 03/01/19 13:47 Ondansetron HCl (Zofran) 4 mg Q6H PRN IVP Nausea & Vomiting 02/28/19 00:15 03/30/19 00:14 02/28/19 11:40 Pantoprazole (Protonix) 40 mg DAILY ORAL 02/28/19 09:00 03/30/19 08:59 03/01/19 08:23 Pioglitazone HCl (Actos) 45 mg ACBREAKFAST ORAL 02/28/19 06:30 03/30/19 06:29 03/01/19 06:02 Vancomycin HCl (Vanco rx to dose) 1 ea DAILY PRN MISC Per rx protocol 02/28/19 00:30 03/30/19 00:29 Vancomycin HCl 1 gm/Dextrose 275 ml @ 183.708 mls/hr Q24H IVPB 02/28/19 08:00 03/05/19 07:59 03/01/19 08:24 Jessica Arana M.D. March 01, 2019 15:06
[2019-03-01 16:00] VITALS: BP 96/57
--- NOTE | 2019-03-01 17:04 | General Progress Note ---
Assessment/Plan Assessment/Plan: 1) Pancytopenia most likely due to MDS/Revlemide 2) ? Diverticulitis 3) Anemia better post transfusion Plan: Will get ID and Hematology consult Subjective Allergies: Coded Allergies: No Known Allergies (Unverified , 02/27/19) Subjective She is feeling better, WBC is down to 1 K, she has been off of Revlemide since admission Objective Last 24 Hour Vital Signs Date Time Temp Pulse Resp B/P (MAP) Pulse Ox O2 Delivery O2 Flow Rate FiO2 03/01/19 16:00 81 03/01/19 16:00 98.3 69 18 96/57 (70) 95 03/01/19 12:00 97.7 79 19 126/47 (73) 97 03/01/19 12:00 78 03/01/19 09:30 Room Air 03/01/19 08:09 98.3 70 20 107/63 (78) 97 03/01/19 08:00 71 03/01/19 04:00 97.5 84 18 111/66 (81) 98 03/01/19 04:00 88 03/01/19 00:00 98.0 88 18 119/64 (82) 97 03/01/19 00:00 106 02/28/19 21:00 Room Air 02/28/19 20:00 97.3 95 18 114/75 (88) 97 02/28/19 20:00 90 Intake and Output 02/28/19 03/01/19 19:00 07:00 Intake Total 820 ml 655 ml Balance 820 ml 655 ml Intake Oral 820 ml IV Total 655 ml # Voids 3 3 Laboratory Tests 02/28/19 19:00: Reticulocyte Count 0.4L, HIV (1&2) Antibody Rapid Negative 02/28/19 23:30: Hepatitis B Surface Antigen [Pending], Hepatitis C Antibody [Pending] 03/01/19 05:25: White Blood Count 1.0*L, Red Blood Count 3.29L, Hemoglobin 9.5L, Hematocrit 28.1L, Mean Corpuscular Volume 85, Mean Corpuscular Hemoglobin 29.0, Mean Corpuscular Hemoglobin Concent 34.0, Red Cell Distribution Width 14.9H, Platelet Count 64L, Mean Platelet Volume , Neutrophils (%) (Auto) , Lymphocytes (%) (Auto) , Monocytes (%) (Auto) , Eosinophils (%) (Auto) , Basophils (%) (Auto ) , Differential Total Cells Counted 100, Neutrophils % (Manual) 44L, Lymphocytes % (Manual) 46H, Monocytes % (Manual) 5, Eosinophils % (Manual) 5H, Basophils % (Manual) 0, Band Neutrophils 0, Platelet Estimate DecreasedL, Platelet Morphology Normal, Hypochromasia 2+, Anisocytosis 1+, Spherocytes 2+, Sodium Level 141, Potassium Level 4.0, Chloride Level 107, Carbon Dioxide Level 24, Anion Gap 10, Blood Urea Nitrogen 11, Creatinine 0.8, Estimat Glomerular Filtration Rate , Glucose Level 174H, Lactic Acid Level 1.30, Calcium Level 8.2L , Total Bilirubin 0.6, Gamma Glutamyl Transpeptidase 16, Aspartate Amino Transf (AST/SGOT) 10L, Alanine Aminotransferase (ALT/SGPT) 12, Alkaline Phosphatase 93 , Total Protein 5.7L, Albumin 2.7L, Globulin 3.0, Albumin/Globulin Ratio 0.9L Height (Feet): 5 Height (Inches): 0.00 Weight (Pounds): 123 General Appearance: WD/WN, alert EENT: PERRL/EOMI Neck: non-tender, normal alignment, supple Cardiovascular: normal rate, regular rhythm Respiratory/Chest: chest wall non-tender, lungs clear Abdomen: non tender, soft Extremities: normal range of motion, non-tender 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
--- NOTE | 2019-03-01 19:10 | NUR ---
NURSE NOTES: Pt report received from Deyanira BOO. Pt appears to be in stable condition as she is resting comfortably in bed with no apparent acute distress noted. Pt is alert and oriented times 4. 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 no signs or symptoms of acute cardiac distress noted. pt appears to be in SR as of now. Pt is saturating well on room air at 99% with no signs or symptoms of acute respiratory distress noted. Pt has a R Forearm 18 G and L Forearm 22 G, both lines patent and able to flush, no complications noted to both IV lines or site. Pt is placed on fall precautions and is instructed to call for assistance. Pt safety precautions are placed such as bed is in lowest position, call light is within easy reach, bed alarm is active, bed rails are up times 2. will continue plan of care.
--- NOTE | 2019-03-01 19:40 | NUR ---
HAND-OFF: Report given to Kenia Vivas. Plan of care endorsed
[2019-03-01 20:00] VITALS: BP 111/66
--- NOTE | 2019-03-01 20:11 | NUR ---
NURSE NOTES: Pt refused Blood sugar check, Levemir and Novolog Medication. Holding Hep due to low PLT.
[2019-03-01] MEDS: Levemir Flexpen SUBQ SCH (20:15)
[2019-03-01] MEDS: Atorvastatin 20mg tab ORAL SCH (20:17)
[2019-03-01] MEDS: Cefepime HCl 2 GM in D5W 55 ML IVPB SCH (20:17)
--- NOTE | 2019-03-01 23:30 | Consultation ---
DATE OF CONSULTATION: 02/28/2019 INFECTIOUS DISEASE CONSULTATION CONSULTING PHYSICIAN: Jessica Arana M.D. REQUESTING PHYSICIAN: Chi Villaseñor M.D. REASON FOR CONSULTATION: Acute diverticulitis and neutropenia in an immunocompromised patient, who has been on chemo. Recommendation for antimicrobial treatment. HISTORY OF PRESENT ILLNESS: This is a 74-year-old female, who is a resident of [facility], who was recently diagnosed with colon cancer at [facility] and was started on chemotherapy with Revlimid. She was sent to [facility] emergency room for abnormal laboratory and low hemoglobin level in the range of 6.8. The patient also was complaining of lower abdominal pain. She had a CT scan of the abdomen and pelvis in the emergency room showed evidence of diverticulitis. The patient also was found to have significant leukopenia and pancytopenia, so she was given Levaquin and Flagyl in the emergency room. An Infectious Disease consultation was requested for antibiotics treatment and further management. The patient is mainly Fijian speaker. History was mainly obtained via [facility] [employer] at the bedside. REVIEW OF SYSTEMS: A 14-point of system reviewed were all negative apart from the one I mentioned above in my History and Physical. PAST MEDICAL HISTORY: Significant for diabetes type 2, insulin dependent, congestive heart failure, gastritis, gastroesophageal reflux disease, and myelodysplasia syndrome. PAST SURGICAL HISTORY: Not on record. She had colonoscopy at [facility]. MEDICATIONS: The patient received Levaquin and metronidazole in the emergency room. Later, she was started on vancomycin and Zosyn by the admitting physician. For the rest of her medications, please refer to MAR. ALLERGIES: No known drug allergies. SOCIAL HISTORY: The patient lives in [facility]. Unemployed. Denied using any drugs, tobacco, or alcohol. PHYSICAL EXAMINATION: VITAL SIGNS: Temperature 98.4, pulse 92, respirations 19, blood pressure 136/81, and saturation 97% on room air. GENERAL: An elderly female, lying in bed, awake, alert, cachectic, and not in acute distress. Pale looking. HEENT: Normocephalic and atraumatic. Pupils are reactive to light equally. Pale sclerae. Moist oral mucosa. No exudate or thrush. NECK: Supple. No lymphadenopathy. CARDIOVASCULAR: Regular rate and rhythm. No murmur or gallop. LUNGS: She had diminished breathing sound in the bases. Normal breathing effort. No wheezing or rhonchi. ABDOMEN: Tender in the lower aspect. No rebound. Hypoactive bowel sounds. No organomegaly. No ascites. EXTREMITIES: No edema or cyanosis. No clubbing. SKIN: No rash. No hives. No ulceration. LABORATORY DATA: Labs showed white count of 1.8, hemoglobin of 10.9, and platelet count of 81,000. BUN of 15 and creatinine of 0.8. Hemoglobin A1c of 6.5. Alkaline phosphatase of 117. Urinalysis negative for urinary tract infection. IMAGING: Chest x-ray on admission, no acute disease. Abdomen and pelvis CT scan showed diverticulosis of the colon. No definite diverticulitis. Normal appendix. Atherosclerotic vascular disease, small left inguinal hernia containing fat, pneumobilia, umbilical hernia, and degenerative changes of lumbar spine. ASSESSMENT AND RECOMMENDATIONS: 1. Possible diverticulitis with abdominal pain, nausea, and vomiting. Initial report of CT scan showed diverticulitis in the distal descending colon and upper sigmoid. The patient will be continued on cefepime and metronidazole empirically. We will monitor. We will send the blood culture to rule out bacteremia since she is immunocompromised and we will deescalate antibiotics accordingly. 2. Neutropenia, suspect due to chemotherapy and less likely due to infection, mainly due to bone marrow suppression. Continue cefepime for Pseudomonas coverage and vancomycin for methicillin-resistant Staphylococcus aureus coverage empirically. We will send blood culture to rule out bacteremia. The patient may need filgrastim injection to improve her white cell count, which is low, suspect from chemo. Recommend Oncology evaluation for her myelodysplasia and neutropenia. 3. Pancytopenia, suspect bone marrow suppression from Revlimid. Recommend Oncology evaluation. Blood transfusion as needed and may be filgrastim injection. We will screen for hepatitis. 4. Abdominal pain due to the above. Continue pain management, hydration, and antibiotics. 5. Anemia. Suspect bone marrow suppression with pancytopenia. Monitor H and H. Transfuse as needed. Thank you for the consult. ID will continue to follow. Jessica Arana M.D. DR: BRAYAN JOB#: [id number] CC:
--- NOTE | 2019-03-01 23:58 | NUR ---
NURSE NOTES: DC Pt L Forearm 22G, Iv line not able to flush. No further complications noted.
[2019-03-02] VITALS: BP 104/67
[2019-03-02 04:00] VITALS: BP 119/66
--- NOTE | 2019-03-02 04:03 | NUR ---
NURSE NOTES: DC R FA 18G. no other skin deformities noted/ abnormalities noted. Inserted L Wrist 24G.
[2019-03-02] MEDS: NovoLOG Insulin Flexpen SUBQ SCH ×4 (05:30→21:00)
--- NOTE | 2019-03-02 05:31 | NUR ---
NURSE NOTES: Pt refused BS check and Novolog MX.
[2019-03-02 06:50] LABS: HEMATOCRIT 27.8 % (37.0-47.0); HEMOGLOBIN 9.4 G/DL (12.0-16.0); MEAN CORPUSCULAR VOLUME 86 FL (80-99); PLATELET COUNT 61 K/UL (150-450); RED BLOOD COUNT 3.22 M/UL (4.20-5.40); RED CELL DISTRIBUTION WIDTH 14.4 % (11.6-14.8)
[2019-03-02 07:02] LABS: WHITE BLOOD COUNT 1.4 K/UL (4.8-10.8)
--- NOTE | 2019-03-02 07:05 | NUR ---
HAND-OFF: Report given to Linsey BOO.
[2019-03-02 07:13] LABS: ALANINE AMINOTRANSFERASE 15 U/L (12-78); ALBUMIN 2.8 G/DL (3.4-5.0); ALBUMIN/GLOBULIN RATIO 0.9 (1.0-2.7); ALKALINE PHOSPHATASE 85 U/L (46-116); ANION GAP 7 mmol/L (5-15); ASPARTATE AMINO TRANSFERASE 13 U/L (15-37); BILIRUBIN,TOTAL 0.5 MG/DL (0.2-1.0); BLOOD UREA NITROGEN 6 mg/dL (7-18); CALCIUM 8.2 MG/DL (8.5-10.1); CARBON DIOXIDE 27 MMOL/L (21-32); CHLORIDE 109 MMOL/L (98-107); CREATININE 0.6 MG/DL (0.55-1.30); POTASSIUM 3.7 MMOL/L (3.5-5.1); SODIUM 143 MMOL/L (136-145)
--- NOTE | 2019-03-02 08:55 | NUR ---
Received report from Kip Aquino. Pt in bed having breakfast. Pt on cardiac sonographer no signs of distress. Bed in lowest position and locked. Call light within reach. Cell phone at bedside. will continue to monitor labs and continue care plan.
--- NOTE | 2019-03-02 08:55 | NUR ---
CASE MANAGEMENT:REVIEW 03/02/19 SI: ACUTE DIVERTICULITIS. NEUTROPENIA 99.4 85 16 119/66 98% ON RA WBC-1.4 H/H-8.4/27.8 PLT-61 IS: IV CEFEPIME QHS IV FLAGYL Q8HRS IV VANCOMYCIN Q24 IVF@50/HR HEPARIN SQ Q12 : TELEMETRY STATUS DCP: FROM [facility] PLAN: NEUTROPENIC PRECAUTIONS/REVERSE ISOLATION
--- NOTE | 2019-03-02 08:58 | NUR ---
NURSE NOTES: Left a message for family members to call latonia Gonzalez back it is urgent. Left message for Nidhi Caldera and also called Leonora.
[2019-03-02] MEDS: Heparin 5000 units/ml inj SUBQ SCH ×2 (09:00→21:00)
[2019-03-02] MEDS: Vancomycin 1gm in D5W 275ml IVPB SCH (09:28)
--- NOTE | 2019-03-02 10:42 | NUR ---
*-* INSURANCE *-* ALL CLINICALS AND REVIEWS HAVE BEEN FAXED TO: IPA: [facility] P: [phone] F: [phone] TRK# [id number]
--- NOTE | 2019-03-02 10:53 | NUR ---
NURSE NOTE Called Leonora at 1045 and left an message to call Dr Chapito HARTMAN so he can call her back at [phone]. Also will call Dr. Ascencio so he can have pt daughter # as well . I was able to speak to daughter Nidhi but she says she is not the decision maker for her mom and she does not talk to her sister.
--- NOTE | 2019-03-02 11:42 | NUR ---
RD ASSESSMENT & RECOMMENDATIONS SEE CARE ACTIVITY FOR COMPLETE ASSESSMENT DAILY ESTIMATED NEEDS: Needs based on CA w/ Chemo, DM 56kg 25-35 kcals/kg 0542-4476 total kcals 1-2 g protein/kg 56-112 g total protein 25-30 mL/kg 0402-9881 total fluid mLs NUTRITION DIAGNOSIS: Increased kcal and pro needs r/t cancer as evidenced by pt w/ colon Ca on chemo, WBC 1.4*. CURRENT DIET: CCHO MED / puree PO DIET RECOMMENDATIONS: NEUTROPENIC CCHO LOW DIET + DOUBLE PROTEIN PORTIONS ----- ADDITIONAL RECOMMENDATIONS: 1) TEXTURE PER ROLL REPAIRER 2) Obtain a standing weight as able 3) With continued fair po intake add GLUCERNA 1 TETRA RUSSEL BID In b/w meals
--- NOTE | 2019-03-02 14:06 | NUR ---
SWALLOW/SPEECH THERAPY NOTE: REFERRED BY DR OREILLY FOR A SWALLOW EVALUATION, SEE FULL REPORT TO FOLLOW. DYSPHAGIA RISK FACTORS FOR THIS 74 Y.O. CUBAN SPEAKING (MX) FEMALE: ACUTE ABNORMAL LABS AND ABDOMINAL PAIN ON ROOM AIR BUT WAS ON 2L 02 NC AT [facility]. H/O NAUSEA/HEARTBURN ON GERD MEDS, DM, COLON CANCER, DIVERTICULOSIS, GASTRITIS GIB, HTN, CARDIAC D/O, CHF. MYELODYSPLASTIC SYNDROME. POLST STATES OK TO HAVE TF IF NEEDS. H/O DYSPHAGIA FOR THIN LIQUIDS AND WAS ON PUREED DYSPHAGIA DIET AT [facility] NOW ON NEUTROPENIC AND CCHO MED PUREED AND NECTAR THICK LIQUIDS BUT INTAKE VARIABLE 0/50/75%. PER RN, PT DISLIKES HER EGGS PUREED AND PATIENT C/O MEAT/BREAD BEING PUREED. PT DENIES PROBLEMS WITH MASTICATED SOLIDS BUT HAS NO DENTURES/TEETH. PATIENT STATES SHE CANNOT DRINK THIN LIQUIDS PER HER MD AND REFUSED TRIAL. ORIENTED X4 AND DENIES STROKE/NEURO AND PNA PROBLEMS. PER RD NEUTROPENIC AND CCHO-LOW DIET TYPE RECOMMENDED. INITIAL IMPRESSIONS: GROSSLY FUNCTIONAL SWALLOW WITH NECTAR THICK LIQUIDS VIA CUP ONE SIP AT A TIME AND PUREED TSP. SLOWER (MILD-MOD) CHEWING WITH MASTICATED SOLID (1/2 SALTINE CRACKER) BUT GROSSLY FUNCTIONAL SWALLOW AND NO ORAL RESIDUE (NO DENTITION/DENTURES). ? IF HAS A SILENT ASPIRATION RISK BUT NO OVERT S/S OF ASPIRATION. (NO DOCUMENTED NEURO DIAGNOSIS) SOMETIMES WILL TALK WITH FOOD IN MOUTH BUT NO EPISODE OF CHOKING NOTED STILL MAY HAVE RISK. REFUSED THIN LIQUID TRIALS BUT REPORTEDLY HAS S/S OF ASPIRATION WITH THIN LIQUIDS AT PRIOR [facility] SETTING. GROSSLY FUNCTIONAL OROMOTOR SKILLS AND ADEQUATE VOICE/COUGH NOTED. RECOMMENDATIONS: COMPLETED MOD BARIUM SWALLOW STUDY TO FURTHER ASSESS SWALLOW, DETERMINE SILENT ASPIRATION RISK/ETIOLOGY, AND ATTEMPT TRIAL TX TECHNIQUES. CONSIDER CONTINUING WITH CURRENT DIET OF PUREED BUT ALLOW PATIENT TO HAVE SCRAMBLED EGG SOFT CHEW FOR BREAKFAST BUT MUST BE SUPERVISED. CONTINUE WITH NECTAR THICK LIQUIDS FOR NOW UNTIL MBSS. USE STRICT ASPIRATION AND REFLUX PRECAUTIONS AND SUPERVISE ALL MEALS. DYSPHAGIA MANAGEMENT AND TX PENDING GOALS PER MBSS ( IP OR OP IF DC) SEND GLUCERNA [address] RECOMMENDATIONS D/W STAFF EDUCATED/TRAINED RN AND PATIENT IN POSTED ASP/REFLUX PRECAUTIONS. Addendum: 03/02/19 at 1409 by TERRIE ESCALONA CUPOLA TAPPER LUNGS ARE CLEAR NOW BUT HAS A SPONTANEOUS COUGH W/O PO AT TIMES.
--- NOTE | 2019-03-02 15:08 | General Progress Note ---
Assessment/Plan Assessment/Plan: 1) Pancytopenia most likely due to MDS/Revlemide 2) ? Diverticulitis 3) Anemia better post transfusion Plan: Will watch her closely for now Subjective Allergies: Coded Allergies: No Known Allergies (Unverified , 02/27/19) Subjective She is feeling better, WBC is up to 1.4, she is constipated x 3days Objective Last 24 Hour Vital Signs Date Time Temp Pulse Resp B/P (MAP) Pulse Ox O2 Delivery O2 Flow Rate FiO2 03/02/19 04:00 99.4 85 16 119/66 (83) 98 03/02/19 04:00 80 03/02/19 00:00 81 03/02/19 00:00 98.9 85 17 104/67 (79) 98 03/01/19 21:00 Room Air 03/01/19 20:00 75 03/01/19 20:00 97.8 86 18 111/66 (81) 99 03/01/19 16:00 81 03/01/19 16:00 98.3 69 18 96/57 (70) 95 Intake and Output 03/01/19 03/02/19 18:59 06:59 Intake Total 480 ml 910 ml Output Total 200 ml Balance 480 ml 710 ml Intake Oral 480 ml IV Total 910 ml Output Urine Total 200 ml Laboratory Tests 03/02/19 05:40: White Blood Count 1.4*L, Red Blood Count 3.22L, Hemoglobin 9.4L, Hematocrit 27.8L, Mean Corpuscular Volume 86, Mean Corpuscular Hemoglobin 29.2, Mean Corpuscular Hemoglobin Concent 33.8, Red Cell Distribution Width 14.4, Platelet Count 61L, Mean Platelet Volume 16.0H, Neutrophils (%) (Auto) , Lymphocytes (%) (Auto) , Monocytes (%) (Auto) , Eosinophils (%) (Auto) , Basophils (%) (Auto) , Differential Total Cells Counted 100, Neutrophils % (Manual) 33L, Lymphocytes % (Manual) 63H, Monocytes % (Manual) 1, Eosinophils % (Manual) 3, Basophils % ( Manual) 0, Band Neutrophils 0, Other Cell Type Pathologist review, Platelet Estimate DecreasedL, Platelet Morphology Normal, Anisocytosis 1+, Sodium Level 143, Potassium Level 3.7, Chloride Level 109H, Carbon Dioxide Level 27, Anion Gap 7, Blood Urea Nitrogen 6L, Creatinine 0.6, Estimat Glomerular Filtration Rate , Glucose Level 173H, Calcium Level 8.2L, Total Bilirubin 0.5, Aspartate Amino Transf (AST/SGOT) 13L, Alanine Aminotransferase (ALT/SGPT) 15, Alkaline Phosphatase 85, Total Protein 5.8L, Albumin 2.8L, Globulin 3.0, Albumin/ Globulin Ratio 0.9L Height (Feet): 5 Height (Inches): 0.00 Weight (Pounds): 123 General Appearance: WD/WN, no apparent distress EENT: PERRL/EOMI Neck: non-tender, normal alignment Cardiovascular: normal rate, regular rhythm Respiratory/Chest: lungs clear Abdomen: non tender, soft Extremities: normal range of motion, non-tender 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
--- NOTE | 2019-03-02 15:14 | NUR ---
NURSE NOTES: pt d5W dc; 20meq not available; called pharmacy. Previous bag of medication is still running. Pharmacy will send new bag
[2019-03-02] MEDS ORDERED: Lactulose 20gm/30ml UDC ORAL SCH ×2 (17:00→19:00)
--- NOTE | 2019-03-02 19:16 | Infectious Diseases Prog Note ---
Assessment/Plan Problems: (1) Diverticulitis Assessment & Plan: possible in the distal descending colon, continue cefepime and metronidazole empirically, monitor blood culture to rule out bacteremia (2) Neutropenia Assessment & Plan: suspect due to chemo therapy and less likely due to infection , due to bone marrow suppression continue cefepime for pseudomonas coverage, and vancomycin empirically. await blood culture to rule out bacteremia. will need filgrastim injection to improve her white cell counts recommend oncology eval for myelodysplasia syndrome (3) Pancytopenia Assessment & Plan: suspect bone marrow supression from chemo (Revlimid ), recommend oncology eval, blood transfusion as needed , and may be filgrastim injection . will screen for hepatitis (4) Abdominal pain Assessment & Plan: suspect due to the above , continue pain management , hydration and antibiotics (5) Anemia Assessment & Plan: suspect bone marrow suppression with pancytopenia , monitor H/H, transfuse as needed Subjective Constitutional: Reports: fatigue HEENT: Reports: coryza Respiratory: Reports: no symptoms Breasts: Reports: no symptoms Cardiovascular: Reports: no symptoms Gastrointestinal/Abdominal: Reports: bloating Genitourinary: Reports: no symptoms Neurologic: Reports: headache Psychiatric: Reports: no symptoms Skin: Reports: no symptoms Endocrine: Reports: no symptoms Hematologic: Reports: no symptoms Musculoskeletal: Reports: no symptoms Allergies: Coded Allergies: No Known Allergies (Unverified , 02/27/19) Subjective she was eating lunch comfortable, NAD Objective Vital Signs Last 24 Hour Vital Signs Date Time Temp Pulse Resp B/P (MAP) Pulse Ox O2 Delivery O2 Flow Rate FiO2 03/02/19 15:40 106 03/02/19 11:31 101 03/02/19 07:37 85 03/02/19 04:00 99.4 85 16 119/66 (83) 98 03/02/19 04:00 80 03/02/19 00:00 81 03/02/19 00:00 98.9 85 17 104/67 (79) 98 03/01/19 21:00 Room Air 03/01/19 20:00 75 03/01/19 20:00 97.8 86 18 111/66 (81) 99 Height (Feet): 5 Height (Inches): 0.00 Weight (Pounds): 123 General Appearance: WD/WN, no acute distress HEENT: normocephalic, atraumatic, anicteric, mucous membranes moist, PERRL, EOMI, pharynx normal, supple, no JVD Respiratory/Chest: chest wall non-tender, lungs clear, normal breath sounds, no respiratory distress, no accessory muscle use Breasts: no masses Cardiovascular: normal peripheral pulses, normal rate, regular rhythm, no gallop/murmur, no JVD Abdomen: normal bowel sounds, soft, non tender, no organomegaly, non distended , no mass, no scars Genitourinary: normal external genitalia Extremities: no cyanosis, no clubbing 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 Complete 02/28/19 00:30 Rectum VRE Culture - Final Enterococcus Faecalis - Vre Complete Laboratory Tests Test 03/02/19 05:40 White Blood Count 1.4 K/UL (4.8-10.8) *L Red Blood Count 3.22 M/UL (4.20-5.40) L Hemoglobin 9.4 G/DL (12.0-16.0) L Hematocrit 27.8 % (37.0-47.0) L Mean Corpuscular Volume 86 FL (80-99) Mean Corpuscular Hemoglobin 29.2 PG (27.0-31.0) Mean Corpuscular Hemoglobin Concent 33.8 G/DL (32.0-36.0) Red Cell Distribution Width 14.4 % (11.6-14.8) Platelet Count 61 K/UL (150-450) L Mean Platelet Volume 16.0 FL (6.5-10.1) H Neutrophils (%) (Auto) % (45.0-75.0) Lymphocytes (%) (Auto) % (20.0-45.0) Monocytes (%) (Auto) % (1.0-10.0) Eosinophils (%) (Auto) % (0.0-3.0) Basophils (%) (Auto) % (0.0-2.0) Differential Total Cells Counted 100 Neutrophils % (Manual) 33 % (45-75) L Lymphocytes % (Manual) 63 % (20-45) H Monocytes % (Manual) 1 % (1-10) Eosinophils % (Manual) 3 % (0-3) Basophils % (Manual) 0 % (0-2) Band Neutrophils 0 % (0-8) Other Cell Type Pathologist review Platelet Estimate Decreased L Platelet Morphology Normal Anisocytosis 1+ Sodium Level 143 MMOL/L (136-145) Potassium Level 3.7 MMOL/L (3.5-5.1) Chloride Level 109 MMOL/L (98-107) H Carbon Dioxide Level 27 MMOL/L (21-32) Anion Gap 7 mmol/L (5-15) Blood Urea Nitrogen 6 mg/dL (7-18) L Creatinine 0.6 MG/DL (0.55-1.30) Estimat Glomerular Filtration Rate mL/min (>60) Glucose Level 173 MG/DL (74-106) H Calcium Level 8.2 MG/DL (8.5-10.1) L Total Bilirubin 0.5 MG/DL (0.2-1.0) Aspartate Amino Transf (AST/SGOT) 13 U/L (15-37) L Alanine Aminotransferase (ALT/SGPT) 15 U/L (12-78) Alkaline Phosphatase 85 U/L (46-116) Total Protein 5.8 G/DL (6.4-8.2) L Albumin 2.8 G/DL (3.4-5.0) L Globulin 3.0 g/dL Albumin/Globulin Ratio 0.9 (1.0-2.7) L Current Medications Medications (Trade) Dose Ordered Sig/Alex Route PRN Reason Start Time Stop Time Status Last Admin Dose Admin Acetaminophen (Tylenol) 650 mg Q4H PRN ORAL Mild Pain (Pain Scale 1-3) 02/28/19 00:15 03/30/19 00:14 03/02/19 11:38 Atorvastatin Calcium (Lipitor) 20 mg BEDTIME ORAL 02/28/19 21:00 03/30/19 20:59 03/01/19 20:17 Cefepime HCl 2 gm/ Dextrose 55 ml @ 110 mls/hr QHS IVPB 03/01/19 21:00 03/08/19 20:59 03/01/19 20:17 Dextrose (Dextrose 50%) 25 ml Q30M PRN IV Hypoglycemia 02/28/19 00:15 03/30/19 00:14 Dextrose (Dextrose 50%) 50 ml Q30M PRN IV Hypoglycemia 02/28/19 00:15 03/30/19 00:14 Dextrose/ Electrolytes 1,000 ml @ 50 mls/hr Q20H IV 02/28/19 00:45 03/30/19 00:44 03/02/19 15:38 Diphenhydramine HCl (Benadryl) 25 mg Q6H PRN ORAL Itching/Pruritis 02/28/19 00:15 03/30/19 00:14 Heparin Sodium (Porcine) (Heparin 5000 units/ml) 5,000 units EVERY 12 HOURS SUBQ 02/28/19 09:00 03/30/19 08:59 Hydromorphone HCl (Dilaudid) 0.5 mg Q6H PRN IVP For Pain 02/28/19 00:15 03/07/19 00:14 02/28/19 11:26 Insulin Aspart (NovoLOG) BEFORE MEALS AND HS SUBQ 02/28/19 06:30 03/30/19 06:29 Insulin Detemir (Levemir) 20 units BEDTIME SUBQ 02/28/19 21:00 03/30/19 20:59 Iopamidol (Isovue-300 100ml) 100 ml NOW PRN INJ Radiology Procedure 02/27/19 21:00 Lactulose (Cephulac) 30 gm ONCE ORAL 03/02/19 19:00 03/02/19 20:00 Metronidazole 100 ml @ 100 mls/hr Q8HR IVPB 02/28/19 22:00 03/07/19 21:59 03/02/19 14:56 Ondansetron HCl (Zofran) 4 mg Q6H PRN IVP Nausea & Vomiting 02/28/19 00:15 03/30/19 00:14 02/28/19 11:40 Pantoprazole (Protonix) 40 mg DAILY ORAL 02/28/19 09:00 03/30/19 08:59 03/02/19 09:29 Pioglitazone HCl (Actos) 45 mg ACBREAKFAST ORAL 02/28/19 06:30 03/30/19 06:29 03/02/19 05:36 Vancomycin HCl (Vanco rx to dose) 1 ea DAILY PRN MISC Per rx protocol 02/28/19 00:30 03/30/19 00:29 Vancomycin HCl 1 gm/Dextrose 275 ml @ 183.708 mls/hr Q24H IVPB 02/28/19 08:00 03/05/19 07:59 03/02/19 09:28 Jessica Arana M.D. March 02, 2019 19:15
[2019-03-02 20:00] VITALS: BP 142/68
[2019-03-02] MEDS: Levemir Flexpen SUBQ SCH (21:00)
--- NOTE | 2019-03-02 21:13 | NUR ---
HAND-OFF: Report given to Ashlyn BOO.
[2019-03-02] MEDS: Atorvastatin 20mg tab ORAL SCH (21:35)
[2019-03-02] MEDS: Cefepime HCl 2 GM in D5W 55 ML IVPB SCH (21:39)
--- NOTE | 2019-03-02 22:30 | History and Physical Report ---
DATE OF ADMISSION: 02/27/2019 NOTE: POOR AUDIO HEMATOLOGY/ONCOLOGY CONSULTATION CONSULTING PHYSICIAN: Hilda Uriarte M.D. REASON FOR CONSULTATION: Pancytopenia. HISTORY OF PRESENT ILLNESS: The patient is a pleasant 74-year-old [place]ian-speaking elderly female. I have obtained all the records via discussions with Dr. Chi Villaseñor who is covering Dr. Kaufman, review of the medical records as well as my discussion with the patient personally via a nurse who speaks fluent [place]. The patient apparently does have a history per records of Dr. 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 Currently, presented for significant abdominal pain, possible diverticulitis, and significant pancytopenia. The patient has been placed on neutropenic precautions. Revlimid has been on hold. The patient's hemoglobin in the 6 range. Per my discussion with the patient, the patient also had a history of colon cancer; however, I have no documentation of that. PAST MEDICAL HISTORY: Questionable MDS, questionable colon cancer per history post abdominal surgery, unknown type, history of diabetes, history congestive heart failure, history of gastritis, history of GERD, history of status post abdominal surgery. MEDICATIONS: Per electronic medical record. SOCIAL HISTORY: The patient resides in a nursing facility. The patient denies any tobacco, alcohol, get hold of them. REVIEW OF SYSTEMS: CONSTITUTIONAL: The patient denies any headaches. PULMONARY: The patient denies shortness of breath. CARDIAC: The patient denies chest pain. NEUROLOGIC: Nonfocal. SKIN: The patient has petechiae. GASTROINTESTINAL: The patient does complain of abdominal pain. LABORATORY AND DIAGNOSTIC DATA: During hospitalization, the patient has undergone a CT scan of the abdomen and pelvis on 02/27/2019. The study has demonstrated diverticulosis diverticulitis, normal appendix, peripheral arterial disease, inguinal hernia, pneumobilia, umbilical hernia, DJD changes of the lumbar spine. Laboratory data as of today includes a white count 1.4, hemoglobin 9.4, 7.6 as of 02/27/2019, platelets 61,000. B12 and folate are within normal limits. Reticulocyte count 0.4. Smear does demonstrate elevation of patient's lymphocytes, evidence of neutropenia. ASSESSMENT AND PLAN: 1. Pancytopenia, etiology unclear. I the patient's old records. We will try obtain them. I will try to discuss with the patient's family. At this point in time, we will hold off on Neupogen since the patient has leukemia. I do not want to introduce Neupogen. The patient is on neutropenic precautions in view of possibility of diverticulosis broad-spectrum antibiotics. I will have Infectious Diseases also evaluate the patient. The patient is cleared for discharge. At some point, the patient will be evaluated as an outpatient. outpatient bone marrow biopsy can be made as well as flow cytometry. For now, peripheral blood smear will be done. Since the patient has had Revlimid, most likely does have MDS versus however I have no diagnosis at this point in time be able to obtain any bone marrow results or flow cytometry results in this patient, therefore will be done. 2. Questionable history of colon cancer, the patient however is a poor historian, the family. 3. Abdominal pain per primary team. 4. Code status is Full Code. Hilda Uriarte M.D. DR: Theresa JOB#: [id number] CC:
[2019-03-03] VITALS: BP 120/87
--- NOTE | 2019-03-03 | NUR ---
NURSE NOTES: pt in bed no change in condition will continue hourly rounds to ensure pt's safety.
[2019-03-03 04:00] VITALS: BP 127/66
--- NOTE | 2019-03-03 04:00 | NUR ---
NURSE NOTES: pt sleeping no acute distress noted, will continue to monitor for safety.
[2019-03-03] MEDS: NovoLOG Insulin Flexpen SUBQ SCH ×4 (06:15→20:50)
--- NOTE | 2019-03-03 06:53 | NUR ---
NURSE NOTES: pt remains in stable condition, pt refused insulin administration, no change in condition, all needs met during my shift, bed locked and lowest position, call light within reach. will endorse care to incoming nurse.
[2019-03-03 08:00] VITALS: BP 157/59
[2019-03-03] MEDS: Heparin 5000 units/ml inj SUBQ SCH ×2 (09:00→20:44)
[2019-03-03] MEDS: Vancomycin 1.25gm Premix IVPB SCH (09:41)
[2019-03-03] MEDS ORDERED: NS 275ml ONE (10:20)
[2019-03-03] MEDS ORDERED: Tubing IV Secondary IV ONE (10:20)
[2019-03-03] MEDS: Cefepime 2gm/D5W 110ml IV SCH ×4 (11:48→20:43)
[2019-03-03 12:00] VITALS: BP 144/64
--- NOTE | 2019-03-03 15:01 | General Progress Note ---
Assessment/Plan Assessment/Plan: 1) Pancytopenia most likely due to MDS/Revlemide 2) ? Diverticulitis 3) Anemia better post transfusion Plan: Will watch her closely for now Labs tomorrow Subjective Allergies: Coded Allergies: No Known Allergies (Unverified , 02/27/19) Subjective She is feeling better, eats well now, no labs today Objective Last 24 Hour Vital Signs Date Time Temp Pulse Resp B/P (MAP) Pulse Ox O2 Delivery O2 Flow Rate FiO2 03/03/19 12:00 98 03/03/19 12:00 97.2 89 18 144/64 (90) 99 03/03/19 09:00 68 03/03/19 08:00 97.7 71 20 157/59 (91) 96 03/03/19 08:00 Room Air 03/03/19 04:00 67 03/03/19 04:00 97.2 66 18 127/66 (86) 97 03/03/19 00:00 96.9 94 18 120/87 (98) 97 03/03/19 00:00 81 03/02/19 21:00 Room Air 03/02/19 20:00 75 03/02/19 20:00 98.0 77 16 142/68 (92) 95 03/02/19 15:40 106 Intake and Output 03/02/19 03/03/19 18:59 06:59 Intake Total 530 ml 155 ml Balance 530 ml 155 ml Intake Oral 480 ml IV Total 50 ml 155 ml # Voids 4 2 # Bowel Movements 1 Laboratory Tests 03/03/19 06:45: Vancomycin Level Trough 8.0 Height (Feet): 5 Height (Inches): 0.00 Weight (Pounds): 123 General Appearance: WD/WN, no apparent distress EENT: PERRL/EOMI Neck: non-tender, normal alignment Cardiovascular: normal rate, regular rhythm Respiratory/Chest: chest wall non-tender, lungs clear Abdomen: non tender, no organomegaly 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
--- NOTE | 2019-03-03 15:48 | Infectious Diseases Prog Note ---
Assessment/Plan Problems: (1) Diverticulitis Assessment & Plan: possible in the distal descending colon, continue cefepime and metronidazole empirically, monitor blood culture to rule out bacteremia (2) Neutropenia Assessment & Plan: suspect due to chemo therapy and less likely due to infection , due to bone marrow suppression continue cefepime for pseudomonas coverage, and vancomycin empirically. await blood culture to rule out bacteremia. will need filgrastim injection to improve her white cell counts recommend oncology eval for myelodysplasia syndrome (3) Pancytopenia Assessment & Plan: suspect bone marrow supression from chemo (Revlimid ), recommend oncology eval, blood transfusion as needed , and may be filgrastim injection . will screen for hepatitis (4) Abdominal pain Assessment & Plan: suspect due to the above , continue pain management , hydration and antibiotics (5) Anemia Assessment & Plan: suspect bone marrow suppression with pancytopenia , monitor H/H, transfuse as needed Subjective Constitutional: Reports: no symptoms HEENT: Reports: no symptoms Respiratory: Reports: no symptoms Breasts: Reports: no symptoms Cardiovascular: Reports: no symptoms Gastrointestinal/Abdominal: Reports: no symptoms Genitourinary: Reports: no symptoms Neurologic: Reports: no symptoms Psychiatric: Reports: no symptoms Skin: Reports: no symptoms Endocrine: Reports: no symptoms Hematologic: Reports: no symptoms Musculoskeletal: Reports: no symptoms Allergies: Coded Allergies: No Known Allergies (Unverified , 02/27/19) Subjective she was eating lunch comfortable, NAD Objective Vital Signs Last 24 Hour Vital Signs Date Time Temp Pulse Resp B/P (MAP) Pulse Ox O2 Delivery O2 Flow Rate FiO2 03/03/19 12:00 98 03/03/19 12:00 97.2 89 18 144/64 (90) 99 03/03/19 09:00 68 03/03/19 08:00 97.7 71 20 157/59 (91) 96 03/03/19 08:00 Room Air 03/03/19 04:00 67 03/03/19 04:00 97.2 66 18 127/66 (86) 97 03/03/19 00:00 96.9 94 18 120/87 (98) 97 03/03/19 00:00 81 03/02/19 21:00 Room Air 03/02/19 20:00 75 03/02/19 20:00 98.0 77 16 142/68 (92) 95 Height (Feet): 5 Height (Inches): 0.00 Weight (Pounds): 123 General Appearance: WD/WN, no acute distress HEENT: normocephalic, atraumatic, anicteric, mucous membranes moist, PERRL, EOMI, pharynx normal, supple, no JVD Respiratory/Chest: chest wall non-tender, lungs clear, normal breath sounds, no respiratory distress, no accessory muscle use Cardiovascular: normal peripheral pulses, normal rate, regular rhythm, no gallop/murmur, no JVD Abdomen: normal bowel sounds, soft, non tender, no organomegaly, non distended , no mass, no scars Extremities: no cyanosis, no clubbing Skin: no rash, no lesions, no ulcers Neurologic/Psychiatric: alert, responsive Microbiology Date/Time Source Procedure Growth Status 02/28/19 23:40 Blood Blood Culture - Preliminary NO GROWTH AFTER 48 HOURS Resulted 02/28/19 23:30 Blood Blood Culture - Preliminary NO GROWTH AFTER 48 HOURS Resulted Laboratory Tests Test 03/03/19 06:45 Vancomycin Level Trough 8.0 ug/mL (5.0-12.0) Current Medications Medications (Trade) Dose Ordered Sig/Alex Route PRN Reason Start Time Stop Time Status Last Admin Dose Admin Acetaminophen (Tylenol) 650 mg Q4H PRN ORAL Mild Pain (Pain Scale 1-3) 02/28/19 00:15 03/30/19 00:14 03/02/19 11:38 Atorvastatin Calcium (Lipitor) 20 mg BEDTIME ORAL 02/28/19 21:00 03/30/19 20:59 03/02/19 21:35 Cefepime HCl 2 gm/ Dextrose 110 ml @ 220 mls/hr Q12HR@1000,2200 IV 03/03/19 10:00 03/10/19 09:59 03/03/19 11:48 Dextrose (Dextrose 50%) 25 ml Q30M PRN IV Hypoglycemia 02/28/19 00:15 03/30/19 00:14 Dextrose (Dextrose 50%) 50 ml Q30M PRN IV Hypoglycemia 02/28/19 00:15 03/30/19 00:14 Dextrose/ Electrolytes 1,000 ml @ 50 mls/hr Q20H IV 02/28/19 00:45 03/30/19 00:44 03/02/19 15:38 Diphenhydramine HCl (Benadryl) 25 mg Q6H PRN ORAL Itching/Pruritis 02/28/19 00:15 03/30/19 00:14 Heparin Sodium (Porcine) (Heparin 5000 units/ml) 5,000 units EVERY 12 HOURS SUBQ 02/28/19 09:00 03/30/19 08:59 Hydromorphone HCl (Dilaudid) 0.5 mg Q6H PRN IVP For Pain 02/28/19 00:15 03/07/19 00:14 02/28/19 11:26 Insulin Aspart (NovoLOG) BEFORE MEALS AND HS SUBQ 02/28/19 06:30 03/30/19 06:29 Insulin Detemir (Levemir) 20 units BEDTIME SUBQ 02/28/19 21:00 03/30/19 20:59 Iopamidol (Isovue-300 100ml) 100 ml NOW PRN INJ Radiology Procedure 02/27/19 21:00 Metronidazole 100 ml @ 100 mls/hr Q8HR IVPB 02/28/19 22:00 03/07/19 21:59 03/03/19 13:29 Ondansetron HCl (Zofran) 4 mg Q6H PRN IVP Nausea & Vomiting 02/28/19 00:15 03/30/19 00:14 02/28/19 11:40 Pantoprazole (Protonix) 40 mg DAILY ORAL 02/28/19 09:00 03/30/19 08:59 03/03/19 08:25 Pioglitazone HCl (Actos) 45 mg ACBREAKFAST ORAL 02/28/19 06:30 03/30/19 06:29 03/03/19 06:04 Vancomycin HCl (Vanco rx to dose) 1 ea DAILY PRN MISC Per rx protocol 02/28/19 00:30 03/30/19 00:29 Vancomycin HCl/ Dextrose 275 ml @ 183.333 mls/hr Q24H IVPB 03/03/19 09:00 03/08/19 08:59 03/03/19 09:41 Jessica Arana M.D. March 03, 2019 15:48
[2019-03-03 16:00] VITALS: BP 135/61
--- NOTE | 2019-03-03 16:33 | NUR ---
NURSE NOTES: Received report from EMA Goldberg. Pt is laying in bed asleep. No distress noted. Bed is in lowest position, side rails up X2, and call light is within reach. Will continue to monitor.
--- NOTE | 2019-03-03 19:16 | NUR ---
CASE MANAGEMENT: REVIEW SI: ANEMIA . NEUTROPENIA . PANCYTOPENIA T 97.0 HR 83 RR 20 BP 157/59 SAT 96% ROOM AIR WBC 1.4 H/H 9.4/27.8 IS: CEFEPIME IV Q12HR VANCO IV Q24HR FLAGYL IV Q8HR D5 NS w/KCl 20mEq IVF TELEMETRY UNIT STATUS DCP: PATIENT IS FROM [facility]
--- NOTE | 2019-03-03 19:20 | NUR ---
NURSE NOTES: received endorsement from Deyanira BOO, pt in bed listening to music, no acute distress noted, no s/s of pain noted. bed locked and lowest position. bed's side rail up x2, call light within reach. will make hourly rounds to ensure pt's safety.
[2019-03-03 20:00] VITALS: BP 135/66
[2019-03-03] MEDS: Atorvastatin 20mg tab ORAL SCH (20:43)
[2019-03-03] MEDS: Levemir Flexpen SUBQ SCH (20:50)
--- NOTE | 2019-03-03 20:50 | NUR ---
NURSE NOTES: BS at this time 296, pt refusing insulin administration, education provided about how important it is to keep glucose level wnl. after education provided. pt still refused the insulin adm
[2019-03-04] VITALS: BP 115/66
--- NOTE | 2019-03-04 | NUR ---
NURSE NOTES: pt sleeping no acute distress no change in condition, will continue to monitor pt to ensure pt's safety.
[2019-03-04 04:00] VITALS: BP 118/67
--- NOTE | 2019-03-04 04:00 | NUR ---
NURSE NOTES: sleeping, no change in condition, bed locked and lowest position. call light within reach. will continue to monitor for changes in pt's condition.
[2019-03-04] MEDS: NovoLOG Insulin Flexpen SUBQ SCH ×4 (05:53→21:00)
--- NOTE | 2019-03-04 06:43 | NUR ---
NURSE NOTES: pt remains in stable condition, no change of condition. no c/o pain at this time. all needs met during my shift. bed locked and lowest position, bed side rails up x2, call light within reach, will endorse plan of care to incoming nurse.
--- NOTE | 2019-03-04 07:23 | NUR ---
NURSE NOTES: Received report from EMA Goldberg. Pt is sleeping in bed. No distress noted. bed is in lowest position, side rails up X2, and call light is within reach. WIll continue to monitor.
--- NOTE | 2019-03-04 07:37 | NUR ---
HAND-OFF: Report given to EMA Mcmillan.
[2019-03-04 08:00] VITALS: BP 130/50
[2019-03-04 08:35] LABS: HEMATOCRIT 28.5 % (37.0-47.0); HEMOGLOBIN 9.6 G/DL (12.0-16.0); MEAN CORPUSCULAR VOLUME 86 FL (80-99); PLATELET COUNT 57 K/UL (150-450); RED BLOOD COUNT 3.32 M/UL (4.20-5.40); RED CELL DISTRIBUTION WIDTH 14.3 % (11.6-14.8)
[2019-03-04 08:36] LABS: WHITE BLOOD COUNT 1.5 K/UL (4.8-10.8)
[2019-03-04 08:43] LABS: ALANINE AMINOTRANSFERASE 21 U/L (12-78); ALBUMIN 2.9 G/DL (3.4-5.0); ALBUMIN/GLOBULIN RATIO 0.9 (1.0-2.7); ALKALINE PHOSPHATASE 97 U/L (46-116); ANION GAP 5 mmol/L (5-15); ASPARTATE AMINO TRANSFERASE 16 U/L (15-37); BILIRUBIN,TOTAL 0.6 MG/DL (0.2-1.0); BLOOD UREA NITROGEN 8 mg/dL (7-18); CALCIUM 8.8 MG/DL (8.5-10.1); CARBON DIOXIDE 30 MMOL/L (21-32); CHLORIDE 106 MMOL/L (98-107); CREATININE 0.6 MG/DL (0.55-1.30); POTASSIUM 3.4 MMOL/L (3.5-5.1); SODIUM 141 MMOL/L (136-145)
[2019-03-04] MEDS: Heparin 5000 units/ml inj SUBQ SCH ×2 (09:00→20:41)
[2019-03-04] MEDS: Vancomycin 1.25gm Premix IVPB SCH (09:04)
[2019-03-04] MEDS: Cefepime 2gm/D5W 110ml IV SCH ×4 (11:50→22:04)
[2019-03-04 12:00] VITALS: BP 135/78
--- NOTE | 2019-03-04 14:28 | NUR ---
CASE MANAGEMENT: REVIEW SI: ANEMIA . NEUTROPENIA . PANCYTOPENIA T 97.5 HR 83 RR 20 BP 130/50 SAT 97% ROOM AIR WBC 1.5 H/H 9.6/28.5 IS: CEFEPIME IV Q12HR VANCO IV Q24HR FLAGYL IV Q8HR D5 NS w/KCl 20mEq IVF TELEMETRY UNIT STATUS DCP: PATIENT IS FROM [facility]
--- NOTE | 2019-03-04 15:17 | General Progress Note ---
Assessment/Plan Assessment/Plan: 1) Pancytopenia most likely due to MDS/Revlemide 2) ? Diverticulitis 3) Anemia better post transfusion Plan: Will watch her closely for now Labs tomorrow IV ATB per ID Subjective Allergies: Coded Allergies: No Known Allergies (Unverified , 02/27/19) Subjective She is feeling about the same, WBC is 1.5 Objective Last 24 Hour Vital Signs Date Time Temp Pulse Resp B/P (MAP) Pulse Ox O2 Delivery O2 Flow Rate FiO2 03/04/19 12:00 83 03/04/19 12:00 97.5 83 20 135/78 (97) 97 03/04/19 09:00 Room Air 03/04/19 08:00 70 03/04/19 08:00 97.5 67 18 130/50 (76) 98 03/04/19 04:00 98.8 86 18 118/67 (84) 99 03/04/19 04:00 76 03/04/19 00:00 92 03/04/19 00:00 98.4 81 18 115/66 (82) 98 03/03/19 21:00 Room Air 03/03/19 20:00 90 03/03/19 20:00 98.1 93 18 135/66 (89) 99 03/03/19 16:00 80 03/03/19 16:00 97.0 83 20 135/61 (85) 98 Intake and Output 03/03/19 03/04/19 18:59 06:59 Intake Total 460 ml 310 ml Output Total 650 ml Balance -190 ml 310 ml Intake Oral 360 ml IV Total 100 ml 310 ml Output Urine Total 650 ml # Voids 5 # Bowel Movements 1 Laboratory Tests 03/04/19 08:00: White Blood Count 1.5*L, Red Blood Count 3.32L, Hemoglobin 9.6L, Hematocrit 28.5L, Mean Corpuscular Volume 86, Mean Corpuscular Hemoglobin 28.9, Mean Corpuscular Hemoglobin Concent 33.6, Red Cell Distribution Width 14.3, Platelet Count 57L, Mean Platelet Volume 11.9H, Neutrophils (%) (Auto) , Lymphocytes (%) (Auto) , Monocytes (%) (Auto) , Eosinophils (%) (Auto) , Basophils (%) (Auto) , Differential Total Cells Counted 100, Neutrophils % (Manual) 28L, Lymphocytes % (Manual) 66H, Monocytes % (Manual) 1, Eosinophils % (Manual) 4H, Basophils % ( Manual) 0, Promyelocytes % 1H, Band Neutrophils 0, Platelet Estimate DecreasedL , Platelet Morphology , Giant Platelets Rare, Anisocytosis 1+, Sodium Level 141 , Potassium Level 3.4L, Chloride Level 106, Carbon Dioxide Level 30, Anion Gap 5 , Blood Urea Nitrogen 8, Creatinine 0.6, Estimat Glomerular Filtration Rate , Glucose Level 212H, Calcium Level 8.8, Total Bilirubin 0.6, Aspartate Amino Transf (AST/SGOT) 16, Alanine Aminotransferase (ALT/SGPT) 21, Alkaline Phosphatase 97, Total Protein 6.0L, Albumin 2.9L, Globulin 3.1, Albumin/ Globulin Ratio 0.9L Height (Feet): 5 Height (Inches): 0.00 Weight (Pounds): 123 General Appearance: WD/WN, no apparent distress EENT: PERRL/EOMI Neck: non-tender, normal alignment Cardiovascular: normal rate, no JVD Respiratory/Chest: lungs clear Abdomen: normal bowel sounds, non tender Extremities: normal range of motion 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
[2019-03-04 16:09] VITALS: BP 118/66
--- NOTE | 2019-03-04 17:04 | Infectious Diseases Prog Note ---
Assessment/Plan Problems: (1) Diverticulitis Assessment & Plan: possible in the distal descending colon, already on cefepime and metronidazole empirically, monitor blood culture to rule out bacteremia (2) Neutropenia Assessment & Plan: suspect due to chemo therapy and less likely due to infection , due to bone marrow suppression continue cefepime for pseudomonas coverage, and vancomycin empirically. await blood culture to rule out bacteremia. follow up with oncology for myelodysplasia syndrome (3) Pancytopenia Assessment & Plan: suspect bone marrow supression from chemo (Revlimid ), blood transfusion as needed . screening for hepatitis is negative (4) Abdominal pain Assessment & Plan: suspect due to the above , continue pain management , hydration and antibiotics (5) Anemia Assessment & Plan: suspect bone marrow suppression with pancytopenia , monitor H/H, transfuse as needed Subjective Constitutional: Reports: no symptoms HEENT: Reports: no symptoms Respiratory: Reports: no symptoms Breasts: Reports: no symptoms Cardiovascular: Reports: no symptoms Gastrointestinal/Abdominal: Reports: no symptoms Genitourinary: Reports: no symptoms Neurologic: Reports: no symptoms Psychiatric: Reports: no symptoms Skin: Reports: no symptoms Endocrine: Reports: no symptoms Hematologic: Reports: no symptoms Musculoskeletal: Reports: no symptoms Allergies: Coded Allergies: No Known Allergies (Unverified , 02/27/19) Subjective she was eating lunch comfortable, NAD Objective Vital Signs Last 24 Hour Vital Signs Date Time Temp Pulse Resp B/P (MAP) Pulse Ox O2 Delivery O2 Flow Rate FiO2 03/04/19 16:09 97.7 94 18 118/66 (83) 99 03/04/19 16:00 88 03/04/19 12:00 83 03/04/19 12:00 97.5 83 20 135/78 (97) 97 03/04/19 09:00 Room Air 03/04/19 08:00 70 03/04/19 08:00 97.5 67 18 130/50 (76) 98 03/04/19 04:00 98.8 86 18 118/67 (84) 99 03/04/19 04:00 76 03/04/19 00:00 92 03/04/19 00:00 98.4 81 18 115/66 (82) 98 03/03/19 21:00 Room Air 03/03/19 20:00 90 03/03/19 20:00 98.1 93 18 135/66 (89) 99 Height (Feet): 5 Height (Inches): 0.00 Weight (Pounds): 123 General Appearance: WD/WN, no acute distress HEENT: normocephalic, atraumatic, anicteric, mucous membranes moist, PERRL Respiratory/Chest: chest wall non-tender, lungs clear, normal breath sounds, no respiratory distress, no accessory muscle use Cardiovascular: normal peripheral pulses, normal rate, regular rhythm, no gallop/murmur, no JVD Abdomen: normal bowel sounds, soft, non tender, no organomegaly, non distended , no mass, no scars Genitourinary: normal external genitalia Extremities: no cyanosis, no clubbing Skin: no rash, no lesions, no ulcers 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, no motor/sensory deficits, alert, oriented x 3, responsive Lymphatic: no neck adenopathy, no groin adenopathy Musculoskeletal: normal muscle bulk, no effusion Laboratory Tests Test 03/04/19 08:00 White Blood Count 1.5 K/UL (4.8-10.8) *L Red Blood Count 3.32 M/UL (4.20-5.40) L Hemoglobin 9.6 G/DL (12.0-16.0) L Hematocrit 28.5 % (37.0-47.0) L Mean Corpuscular Volume 86 FL (80-99) Mean Corpuscular Hemoglobin 28.9 PG (27.0-31.0) Mean Corpuscular Hemoglobin Concent 33.6 G/DL (32.0-36.0) Red Cell Distribution Width 14.3 % (11.6-14.8) Platelet Count 57 K/UL (150-450) L Mean Platelet Volume 11.9 FL (6.5-10.1) H Neutrophils (%) (Auto) % (45.0-75.0) Lymphocytes (%) (Auto) % (20.0-45.0) Monocytes (%) (Auto) % (1.0-10.0) Eosinophils (%) (Auto) % (0.0-3.0) Basophils (%) (Auto) % (0.0-2.0) Differential Total Cells Counted 100 Neutrophils % (Manual) 28 % (45-75) L Lymphocytes % (Manual) 66 % (20-45) H Monocytes % (Manual) 1 % (1-10) Eosinophils % (Manual) 4 % (0-3) H Basophils % (Manual) 0 % (0-2) Promyelocytes % 1 % (0-0) H Band Neutrophils 0 % (0-8) Platelet Estimate Decreased L Platelet Morphology Giant Platelets Rare Anisocytosis 1+ Sodium Level 141 MMOL/L (136-145) Potassium Level 3.4 MMOL/L (3.5-5.1) L Chloride Level 106 MMOL/L (98-107) Carbon Dioxide Level 30 MMOL/L (21-32) Anion Gap 5 mmol/L (5-15) Blood Urea Nitrogen 8 mg/dL (7-18) Creatinine 0.6 MG/DL (0.55-1.30) Estimat Glomerular Filtration Rate mL/min (>60) Glucose Level 212 MG/DL (74-106) H Calcium Level 8.8 MG/DL (8.5-10.1) Total Bilirubin 0.6 MG/DL (0.2-1.0) Aspartate Amino Transf (AST/SGOT) 16 U/L (15-37) Alanine Aminotransferase (ALT/SGPT) 21 U/L (12-78) Alkaline Phosphatase 97 U/L (46-116) Total Protein 6.0 G/DL (6.4-8.2) L Albumin 2.9 G/DL (3.4-5.0) L Globulin 3.1 g/dL Albumin/Globulin Ratio 0.9 (1.0-2.7) L Current Medications Medications (Trade) Dose Ordered Sig/Alex Route PRN Reason Start Time Stop Time Status Last Admin Dose Admin Acetaminophen (Tylenol) 650 mg Q4H PRN ORAL Mild Pain (Pain Scale 1-3) 02/28/19 00:15 03/30/19 00:14 03/04/19 11:49 Atorvastatin Calcium (Lipitor) 20 mg BEDTIME ORAL 02/28/19 21:00 03/30/19 20:59 03/03/19 20:43 Cefepime HCl 2 gm/ Dextrose 110 ml @ 220 mls/hr Q12HR@1000,2200 IV 03/03/19 10:00 03/10/19 09:59 03/04/19 11:50 Dextrose (Dextrose 50%) 25 ml Q30M PRN IV Hypoglycemia 02/28/19 00:15 03/30/19 00:14 Dextrose (Dextrose 50%) 50 ml Q30M PRN IV Hypoglycemia 02/28/19 00:15 03/30/19 00:14 Dextrose/ Electrolytes 1,000 ml @ 50 mls/hr Q20H IV 02/28/19 00:45 03/30/19 00:44 03/02/19 15:38 Diphenhydramine HCl (Benadryl) 25 mg Q6H PRN ORAL Itching/Pruritis 02/28/19 00:15 03/30/19 00:14 Heparin Sodium (Porcine) (Heparin 5000 units/ml) 5,000 units EVERY 12 HOURS SUBQ 02/28/19 09:00 03/30/19 08:59 Hydromorphone HCl (Dilaudid) 0.5 mg Q6H PRN IVP For Pain 02/28/19 00:15 03/07/19 00:14 02/28/19 11:26 Insulin Aspart (NovoLOG) BEFORE MEALS AND HS SUBQ 02/28/19 06:30 03/30/19 06:29 Insulin Detemir (Levemir) 20 units BEDTIME SUBQ 02/28/19 21:00 03/30/19 20:59 Iopamidol (Isovue-300 100ml) 100 ml NOW PRN INJ Radiology Procedure 02/27/19 21:00 Metronidazole 100 ml @ 100 mls/hr Q8HR IVPB 02/28/19 22:00 03/07/19 21:59 03/04/19 13:31 Ondansetron HCl (Zofran) 4 mg Q6H PRN IVP Nausea & Vomiting 02/28/19 00:15 03/30/19 00:14 02/28/19 11:40 Pantoprazole (Protonix) 40 mg DAILY ORAL 02/28/19 09:00 03/30/19 08:59 03/04/19 09:03 Pioglitazone HCl (Actos) 45 mg ACBREAKFAST ORAL 02/28/19 06:30 03/30/19 06:29 03/04/19 05:42 Vancomycin HCl (Vanco rx to dose) 1 ea DAILY PRN MISC Per rx protocol 02/28/19 00:30 03/30/19 00:29 Vancomycin HCl/ Dextrose 275 ml @ 183.333 mls/hr Q24H IVPB 03/03/19 09:00 03/08/19 08:59 03/04/19 09:04 Jessica Arana M.D. March 04, 2019 17:04
--- NOTE | 2019-03-04 19:12 | NUR ---
HAND-OFF: Report given to EMA Goldberg. Plan of care endorsed
--- NOTE | 2019-03-04 19:30 | NUR ---
NURSE NOTES: received endorsement from Deyanira BOO, no acute distress noted, no s/s of pain noted. bed locked and lowest position. bed's side rail up x2, call light within reach. will make hourly rounds to ensure pt's safety.
[2019-03-04 20:00] VITALS: BP 102/56
[2019-03-04] MEDS: Levemir Flexpen SUBQ SCH (21:00)
[2019-03-04] MEDS: Atorvastatin 20mg tab ORAL SCH (21:17)
[2019-03-05] VITALS: BP 96/69
--- NOTE | 2019-03-05 | NUR ---
NURSE NOTES: pt sleeping no acute distress no change in condition, will continue to monitor pt to ensure pt's safety.
[2019-03-05 04:00] VITALS: BP 99/58
--- NOTE | 2019-03-05 04:00 | NUR ---
NURSE NOTES: sleeping, no change in condition, bed locked and lowest position. call light within reach. will continue to monitor for changes in pt's condition.
[2019-03-05] MEDS: NovoLOG Insulin Flexpen SUBQ SCH ×3 (05:45→16:30)
--- NOTE | 2019-03-05 07:35 | NUR ---
HAND-OFF: Report given to EMA Shin.
--- NOTE | 2019-03-05 07:36 | NUR ---
NURSE NOTES: Received report from EMA Goldberg. Patient is resting in bed, in stable condition. No s/sx of SOB, breathing is even and unlabored. Denies any presence of pain or discomfort at this time. Bed is in lowest position, brakes engaged. Call light is kept within easy reach. Will continue to monitor patient.
[2019-03-05 08:00] VITALS: BP 110/67
[2019-03-05] MEDS: Heparin 5000 units/ml inj SUBQ SCH (08:06)
[2019-03-05] MEDS: Vancomycin 1.25gm Premix IVPB SCH (08:07)
[2019-03-05] MEDS: Cefepime 2gm/D5W 110ml IV SCH ×2 (10:08)
[2019-03-05 12:00] VITALS: BP 121/73
--- NOTE | 2019-03-05 15:03 | NUR ---
CASE MANAGEMENT:REVIEW 03/05/19 SI: PANCYTOPENIA. ? DIVERTICULITIS. ANEMIA NEUTROPENIA 97.5 86 20 121/73 97% ON RA WBC+1.5 H/H-9.6/28.5 PLT-57 IS: IV CEFEPIME Q12 IV VANCOMYCIN Q24 IV FLAGYL Q8HRS IVF@50/HR HEPARIN SQ Q12 PROTONIX PO QD : TELEMETRY STATUS
--- NOTE | 2019-03-05 15:16 | NUR ---
DISCHARGE/TRANSFER RECEIVED CALL FROM [facility] STATING PATIENT IS OUT OF NETWORK AND BELONGS AT [facility] [place] PROVIDED [facility] DIETITIAN THERAPEUTIC WITH DR OREILLY'S OFFICE NUMBER FOR MD TO MD CONVERSATION REGARDING STABILITY TO TRANSFER [facility] PHYSICIAN IS DR MELENDEZ T: [phone], HE IS WAITING TO SPEAK WITH DR HIGUERA
[2019-03-05] MEDS ORDERED: NS 275ml ONE (15:22)
[2019-03-05] MEDS ORDERED: Tubing IV Secondary IV ONE ×2 (15:22→20:54)
--- NOTE | 2019-03-05 15:46 | NUR ---
DISCHARGE PLANNING DR OREILLY SPOKE WITH [facility] PHYSICIAN PATIENT IS TO TRANSFER TO [facility] ONCE [facility] SECURES A BED THEY WILL CONTACT THE NURSES STATION FOR TRANSPORTATION USE "[facility]" AUTHORIZATION NUMBER IS [id number] [facility] SOCIAL SERVICE TECHNICIAN IS ISATU T: [phone]
[2019-03-05 16:00] VITALS: BP 138/74
--- NOTE | 2019-03-05 16:28 | Infectious Diseases Prog Note ---
Assessment/Plan Problems: (1) Diverticulitis Assessment & Plan: possible in the distal descending colon, already on cefepime and metronidazole empirically, monitor blood culture to rule out bacteremia (2) Neutropenia Assessment & Plan: suspect due to chemo therapy and less likely due to infection , due to bone marrow suppression continue cefepime for pseudomonas coverage, and vancomycin empirically. await blood culture to rule out bacteremia. follow up with oncology for myelodysplasia syndrome (3) Pancytopenia Assessment & Plan: suspect bone marrow supression from chemo (Revlimid ), blood transfusion as needed . screening for hepatitis is negative (4) Abdominal pain Assessment & Plan: suspect due to the above , continue pain management , hydration and antibiotics (5) Anemia Assessment & Plan: suspect bone marrow suppression with pancytopenia , monitor H/H, transfuse as needed Subjective Constitutional: Reports: no symptoms HEENT: Reports: congestion Respiratory: Reports: no symptoms Breasts: Reports: no symptoms Cardiovascular: Reports: no symptoms Gastrointestinal/Abdominal: Reports: bloating Genitourinary: Reports: no symptoms Neurologic: Reports: no symptoms Psychiatric: Reports: no symptoms Skin: Reports: no symptoms Endocrine: Reports: no symptoms Hematologic: Reports: no symptoms Musculoskeletal: Reports: no symptoms Allergies: Coded Allergies: No Known Allergies (Unverified , 02/27/19) Subjective she was up in bed, awake and comfortable, was eating her lunch , afebrile Objective Vital Signs Last 24 Hour Vital Signs Date Time Temp Pulse Resp B/P (MAP) Pulse Ox O2 Delivery O2 Flow Rate FiO2 03/05/19 12:00 97.5 86 20 121/73 (89) 97 03/05/19 12:00 84 03/05/19 09:00 Room Air 03/05/19 08:00 98.0 85 20 110/67 (81) 94 03/05/19 08:00 80 03/05/19 04:00 97.0 85 20 99/58 (72) 97 03/05/19 04:00 86 03/05/19 00:00 96 03/05/19 00:00 97.9 96 20 96/69 (78) 96 03/04/19 21:00 Room Air 03/04/19 20:00 90 03/04/19 20:00 97.7 95 20 102/56 (71) 96 Height (Feet): 5 Height (Inches): 0.00 Weight (Pounds): 123 General Appearance: WD/WN, no acute distress HEENT: normocephalic, atraumatic, anicteric, mucous membranes moist, EOMI, pharynx normal, supple, no JVD Respiratory/Chest: chest wall non-tender, lungs clear, normal breath sounds, no respiratory distress, no accessory muscle use Cardiovascular: normal peripheral pulses, normal rate, regular rhythm, no gallop/murmur, no JVD Abdomen: normal bowel sounds, soft, non tender, no organomegaly, non distended , no mass, no scars Extremities: no cyanosis, no clubbing Skin: no rash, no lesions, no ulcers Neurologic/Psychiatric: alert, responsive Lymphatic: no neck adenopathy, no groin adenopathy Musculoskeletal: normal muscle bulk, no effusion Current Medications Medications (Trade) Dose Ordered Sig/Alex Route PRN Reason Start Time Stop Time Status Last Admin Dose Admin Acetaminophen (Tylenol) 650 mg Q4H PRN ORAL Mild Pain (Pain Scale 1-3) 02/28/19 00:15 03/30/19 00:14 03/05/19 08:06 Atorvastatin Calcium (Lipitor) 20 mg BEDTIME ORAL 02/28/19 21:00 03/30/19 20:59 03/04/19 21:17 Cefepime HCl 2 gm/ Dextrose 110 ml @ 220 mls/hr Q12HR@1000,2200 IV 03/03/19 10:00 03/10/19 09:59 03/05/19 10:08 Dextrose (Dextrose 50%) 25 ml Q30M PRN IV Hypoglycemia 02/28/19 00:15 03/30/19 00:14 Dextrose (Dextrose 50%) 50 ml Q30M PRN IV Hypoglycemia 02/28/19 00:15 03/30/19 00:14 Dextrose/ Electrolytes 1,000 ml @ 50 mls/hr Q20H IV 02/28/19 00:45 03/30/19 00:44 03/02/19 15:38 Diphenhydramine HCl (Benadryl) 25 mg Q6H PRN ORAL Itching/Pruritis 02/28/19 00:15 03/30/19 00:14 Heparin Sodium (Porcine) (Heparin 5000 units/ml) 5,000 units EVERY 12 HOURS SUBQ 02/28/19 09:00 03/30/19 08:59 Hydromorphone HCl (Dilaudid) 0.5 mg Q6H PRN IVP For Pain 02/28/19 00:15 03/07/19 00:14 02/28/19 11:26 Insulin Aspart (NovoLOG) BEFORE MEALS AND HS SUBQ 02/28/19 06:30 03/30/19 06:29 03/05/19 12:05 Insulin Detemir (Levemir) 20 units BEDTIME SUBQ 02/28/19 21:00 03/30/19 20:59 Iopamidol (Isovue-300 100ml) 100 ml NOW PRN INJ Radiology Procedure 02/27/19 21:00 Metronidazole 100 ml @ 100 mls/hr Q8HR IVPB 02/28/19 22:00 03/07/19 21:59 03/05/19 15:27 Ondansetron HCl (Zofran) 4 mg Q6H PRN IVP Nausea & Vomiting 02/28/19 00:15 03/30/19 00:14 02/28/19 11:40 Pantoprazole (Protonix) 40 mg DAILY ORAL 02/28/19 09:00 03/30/19 08:59 03/05/19 08:06 Pioglitazone HCl (Actos) 45 mg ACBREAKFAST ORAL 02/28/19 06:30 03/30/19 06:29 03/05/19 05:38 Vancomycin HCl (Vanco rx to dose) 1 ea DAILY PRN MISC Per rx protocol 02/28/19 00:30 03/30/19 00:29 Vancomycin HCl/ Dextrose 275 ml @ 183.333 mls/hr Q24H IVPB 03/03/19 09:00 03/08/19 08:59 03/05/19 08:07 Jessica Arana M.D. March 05, 2019 16:28
--- NOTE | 2019-03-05 16:50 | NUR ---
NURSE NOTES: Dr. Villaseñor notified of bed in [facility]. Dr. Villaseñor acknowledged and ordered to discharge and transfer to [facility]. Order entered, noted, and carried out.
--- NOTE | 2019-03-05 17:00 | NUR ---
NURSE NOTES: Called and gave report to EMA Lockett of [facility].
--- NOTE | 2019-03-05 17:10 | NUR ---
NURSE NOTES: Called "[facility]" to setup transportation, however service unreachable. Per lead case manager digital assistant, Kriss of patient insurance handler, may call any transportation services if [facility] is unreachable. This nurse called [facility] and set up transportation to [facility]. Per Yemi of [facility], picking table worker is at 2015 hours. Noted. Made charge nurse aware, and nurse at [facility] aware. Noted.
[2019-03-05 17:17] LABS: HEMATOCRIT 25.9 % (37.0-47.0); MEAN CORPUSCULAR VOLUME 84 FL (80-99); PLATELET COUNT 54 K/UL (150-450); RED BLOOD COUNT 3.08 M/UL (4.20-5.40); RED CELL DISTRIBUTION WIDTH 13.7 % (11.6-14.8)
[2019-03-05 17:19] LABS: WHITE BLOOD COUNT 1.5 K/UL (4.8-10.8)
--- NOTE | 2019-03-05 19:20 | Discharge Summary ---
Discharge Summary Discharge Summary _ [id number] Chi Villaseñor MD March 05, 2019 19:20
--- NOTE | 2019-03-05 19:30 | NUR ---
HAND-OFF: Report given to EMA Watts.
--- NOTE | 2019-03-05 19:37 | NUR ---
NURSE NOTES: Received report from EMA Shin. Patient is awake lying semi-paige's; resting comfortably. No signs of acute distress noted; denies pain at this time. AOx4; able to make needs known. Primarily Bel[place]ian speaking. Checked IV site; patent and flushed. No erythema, bleeding, or infiltration noted. Patient is aware of discharge disposition to [facility]. Bed at lowest position, brakes on, siderails up x3. Call light within reach. Will continue to monitor.
[2019-03-05 20:00] VITALS: BP 135/59
--- NOTE | 2019-03-05 20:54 | NUR ---
NURSE NOTES: Patient was discharged to [facility] via stretcher 2 ambulance staff member assist without incident. No signs of acute distress noted; denies pain at this time. V/S stable upon discharge. Patient taken off tele box; tolerated well. IV site kept patent and intact. Discharge packet given and explained to ambulance staff; verbalized understanding. Belongings list checked with and signed by patient.
--- NOTE | 2019-03-06 03:15 | Discharge Summary ---
DATE OF ADMISSION: 02/27/2019 DATE OF DISCHARGE: 03/05/2019 DIAGNOSES OF DISCHARGE: 1. Evidence of pancytopenia possibly due to myelodysplastic syndrome versus Revlimid. 2. Evidence of some degree of neutropenia. 3. Questionable acute diverticulitis. 4. Type 2 diabetes mellitus. CONSULTANTS: 1. Jessica Arana M.D., Infectious Disease. 2. Hilda Uriarte M.D., Hematology/Oncology. HISTORY AND PHYSICAL AND HOSPITAL COURSE: For details please refer to the History and Physical as well as the consults dictated in the chart. This is a very pleasant 74-year-old, female, who is not speaking [place], came from a assisted under the care of Dr. Maximilian Kaufman that I am covering for, has had hemoglobin of about 6.8 grams/deciliter, and she had also had white counts in the range of 2.5. Has had some lower abdominal pain. CT scan of the abdomen is showing evidence of colonic diverticulosis and acute diverticulitis was not completely excluded. She was subsequently admitted to the hospital. I started some intravenous fluids. Received also Levaquin and Flagyl as well as Zosyn and vancomycin during the course of hospitalization. However, her white counts came down to about 1000 with some degree of neutropenia. She received 2 units of blood. Her hemoglobin has gone up to about 9.5 gram/deciliter. The course of hospitalization was essentially significant for the fact that she received some intravenous antibiotics. Her abdominal pain has improved remarkably. Nevertheless, we have consulted the Hematology/Oncology. However because of the neutropenia, we have decided not to give the Neupogen without having a bone marrow biopsy. However because of her health insurance arrangements, she needs to be transferred to [facility] that she is going to be discharged from [place] and go to a [facility]. I talked to the hospitalist over there. She continued on the intravenous antibiotics and probably needs to have workup for this pancytopenia. Revlimid has been discontinued since she came to the hospital and we continued all the other medications. Chi Villaseñor M.D. DR: GUY JOB#: [id number] CC:
--- NOTE | 2019-03-18 15:25 | NUR ---
CASE MANAGEMENT: Face sheet and DC Summary faxed to [facility] @ [phone]
== END 2019-03-05 20:55 | DRG 244 ==
LOC: EDBD 20:29 → EMR 20:51 → EDBEDREQ 21:27 → 2E 21:31 → EDBEDREQ 22:20 → EDBEDREQSVC 22:20 → EDBEDREQ 22:35
PROC: 30233N1 Transfusion of Nonautologous Red Blood Cells into Peripheral Vein, Percutaneous Approach (ICD-10-PCS; principal; 2019-02-27)
DX: K57.32 Diverticulitis of large intestine without perforation or abscess without bleeding (principal); D61.818 Other pancytopenia; E87.2 Acidosis; D70.1 Agranulocytosis secondary to cancer chemotherapy; E11.9 Type 2 diabetes mellitus without complications; D46.9 Myelodysplastic syndrome, unspecified; K21.9 Gastro-esophageal reflux disease without esophagitis; Z85.038 Personal history of other malignant neoplasm of large intestine; Z79.4 Long term (current) use of insulin; T45.1X5A Adverse effect of antineoplastic and immunosuppressive drugs, initial encounter
CPT/HCPCS: 36415; 71045; 74177; 80053; 80202; 81003; 82607; 82728; 82746; 82962; 82977; 83036; 83540; 83550; 83605; 83690; 84484; 85007; 85025; 85044; 85060; 85610; 85730; 86703; 86803; 86850; 86900; 86901; 86920; 87040; 87081; 87340; 93005; 96361; 96365; 96367; 99291; J1815; J2405; S5561